=== PATIENT | male | born 1955 | race Two or more races ===

== ENCOUNTER 2021-05-03 20:49 | Inpatient (IN) | payer OTHER ==
[~2021-05-03] VITALS: Ht 190.5 cm; Wt 85.0 kg
[2021-05-03] MEDS ORDERED: DexAMETHasone SOD PHOS 10MG/1ML VIAL INJ IV ONE (21:15)
[2021-05-03 22:18] LABS: Basophils # (auto) 0 10 ^3/uL (0-0.2); Basophils % (auto) 0.4 % (0.0-2.0); Eosinophils # (auto) 0 10 ^3/uL (0-0.8); Hematocrit 39.5 % (41.0-53.0); Hemoglobin 14.2 g/dL (13.5-17.5); Lymphocytes # (auto) 0.4 10 ^3/uL (0.4-5.4); Lymphocytes % (auto) 5.5 % (10.0-50.0); Mean Corpuscular Hemoglobin 29.5 pg (28.0-32.0); Mean Corpuscular Volume 81.8 fL (80.0-100.0); Monocytes # (auto) 0.5 10 ^3/uL (0-1.3); Monocytes % (auto) 6.7 % (0.0-12.0); Neutrophils # (auto) 6.7 10 ^3/uL (1.6-8.6); Neutrophils % (auto) 87.4 % (37.0-80.0); Nucleated Red Blood Cells % 0.1 %; Red Blood Cells 4.83 10^6/uL (4.5-5.90); Red Cell Distribution Width 12.4 % (11.8-14.3); White Blood Cell 7.6 10^3/uL (4.4-10.8)
[2021-05-03 22:35] LABS: INR 1.12 (0.9-1.15); Partial Thromboplastin Time 31.3 sec (23.6-33.0)
[2021-05-03 22:38] LABS: Albumin 2.9 g/dL (3.4-5.0); Anion Gap 10 (5-15); BUN/Creatinine Ratio 27.6; Blood Alcohol < 3.0 mg/dL (0-5); Blood Urea Nitrogen 32 mg/dL (7-18); Calcium 8.5 mg/dL (8.5-10.1); Carbon Dioxide 25 mmol/L (21-32); Chloride 102 mmol/L (98-107); GFR African American 81 mL/min; GFR Non-African American 67 mL/min; Glucose 237 mg/dL (74-106); Magnesium 2.5 mg/dL (1.6-2.6); Potassium 4.4 mmol/L (3.5-5.1); Sodium 137 mmol/L (136-145)
[2021-05-03 22:40] LABS: Lactic Acid w/Reflex 2.4 mmol/L (0.4-2.0)
[2021-05-03 22:41] LABS: Alanine Aminotransferase 39 U/L (16-61); Alkaline Phosphatase 66 U/L (45-117); Aspartate Aminotransferase 50 U/L (15-37); Bilirubin, Total 0.7 mg/dL (0.2-1.0); Total Protein 7.5 g/dL (6.4-8.2)
[2021-05-04] VITALS (7 sets, daily range): BP systolic 95–107; BP diastolic 63–67
[2021-05-04] MEDS ORDERED: DEXTROSE (50%) 50ML SYRG IV PRN (01:15)
[2021-05-04] MEDS ORDERED: cefTRIAXone 1GM/50ML D5W 50 ML IV ONE (01:15)
[2021-05-04] MEDS ORDERED: PANTOPRAZOLE 40 MG TAB PO ONE (01:15)
[2021-05-04] MEDS ORDERED: ASCORBIC ACID 500 MG TAB PO ONE (01:15)
[2021-05-04] MEDS ORDERED: D5W/SOD CHL 0.45% 1,000 ML IV ONE (01:15)
[2021-05-04] MEDS ORDERED: IOHEXOL 350 MG/ML 100ML IJ ONE (01:18)
[2021-05-04] MEDS ORDERED: AZITHROMYCIN 500MG/ 250ML 250 ML IV ONE (01:30)
[2021-05-04] MEDS ORDERED: methylPREDNISolone SOD SUCC 125 MG/2 ML VL IV ONE (06:00)
[2021-05-04] MEDS ORDERED: OXYBUTYNIN CHL 5 MG TAB PO ONE (06:00)
[2021-05-04] MEDS ORDERED: glipiZIDE 5 MG TAB PO ONE (08:00)
[2021-05-04] MEDS: cefTRIAXone 1GM/50ML D5W 50 ML IV SCH ×2 (09:00→11:17)
[2021-05-04] MEDS ORDERED: METOPROLOL TARTRATE 50 MG TAB PO ONE (10:00)
[2021-05-04] MEDS: InsuLIN REG 1unit/0.01ml Soln (100units/ml) SC SCH ×3 (10:00→22:32)
[2021-05-04] MEDS ORDERED: ASPirin 81 mg TAB PO ONE (10:00)
[2021-05-04] MEDS: ACCU-CHEK COMFORT CURVE STRIP VI SCH ×2 (10:00→22:24)
[2021-05-04] MEDS ORDERED: AMITRIPTYLINE HCL 25 MG TAB PO ONE (10:00)
[2021-05-04] MEDS ORDERED: methylPREDNISolone SOD SUCC 125 MG/2 ML VL ONE (15:39)
[2021-05-04] MEDS ORDERED: LISINOPRIL 10 MG TAB PO ONE (22:00)
[2021-05-05 05:00] VITALS: BP 92/57
[2021-05-05 09:00] VITALS: BP 106/67
[2021-05-05] MEDS: ENOXAPARIN SOD 40 MG/0.4 ML SYRINGE SC SCH (10:30)
[2021-05-05] MEDS: ACCU-CHEK COMFORT CURVE STRIP VI SCH ×3 (10:30→21:49)
[2021-05-05] MEDS ORDERED: REMDESIVIR PER PHARMACY 0 ML IV SCH (12:15)
[2021-05-05 12:56] VITALS: BP 108/72
[2021-05-05 13:00] LABS: Urine WBC None Seen /hpf (0 - 3)
[2021-05-05 13:13] LABS: Urine Bacteria NONE SEEN /hpf (None Seen); Urine Blood TRACE /uL (Negative); Urine Hyaline Cast FEW /lpf (0 - 2); Urine Mucus FEW (None Seen); Urine Specific Gravity 1.039 (1.001-1.035)
[2021-05-05 13:21] LABS: Alcohol, Urine < 3.0 mg/dL (0-10); Amphetamine Screen, Urine NEGATIVE (NEGATIVE); Barbiturate Scree,Urine NEGATIVE (NEGATIVE); Benzodiazephine Screen, Urine NEGATIVE (NEGATIVE); Cannabinoid Screen, Urine NEGATIVE (NEGATIVE); Cocaine Screen, Urine NEGATIVE (NEGATIVE); Opiate Scree,Urine NEGATIVE (NEGATIVE); Phencyclidine Screen, Urine NEGATIVE (NEGATIVE)
[2021-05-05 13:36] LABS: Basophils # (auto) 0 10 ^3/uL (0-0.2); Basophils % (auto) 0.1 % (0.0-2.0); Eosinophils # (auto) 0 10 ^3/uL (0-0.8); Hematocrit 39.9 % (41.0-53.0); Hemoglobin 14.3 g/dL (13.5-17.5); Lymphocytes # (auto) 0.4 10 ^3/uL (0.4-5.4); Lymphocytes % (auto) 3.3 % (10.0-50.0); Mean Corpuscular Hemoglobin 29.2 pg (28.0-32.0); Mean Corpuscular Hgb Conc. 35.8 g/dL (32.0-36.0); Mean Corpuscular Volume 81.7 fL (80.0-100.0); Monocytes # (auto) 0.6 10 ^3/uL (0-1.3); Monocytes % (auto) 5.5 % (0.0-12.0); Neutrophils # (auto) 10.7 10 ^3/uL (1.6-8.6); Neutrophils % (auto) 91.1 % (37.0-80.0); Red Blood Cells 4.89 10^6/uL (4.5-5.90); White Blood Cell 11.8 10^3/uL (4.4-10.8)
[2021-05-05 13:47] LABS: Albumin 2.8 g/dL (3.4-5.0); BUN/Creatinine Ratio 46.5; Calcium 8.2 mg/dL (8.5-10.1)
[2021-05-05 13:49] LABS: Bilirubin, Total 0.6 mg/dL (0.2-1.0); Total Protein 7.2 g/dL (6.4-8.2)
[2021-05-05] MEDS ORDERED: SENNA 8.6 MG TAB PO SCH (14:00)
[2021-05-05] MEDS ORDERED: REMDESIVIR 200 MG in NS 210ml LOADING DOSE ADULT IV ONE (15:00)
[2021-05-05] MEDS ORDERED: SENNA 8.6 MG TAB PO PRN (16:15)
[2021-05-05 17:00] VITALS: BP 117/78
[2021-05-05] MEDS: InsuLIN REG 1unit/0.01ml Soln (100units/ml) SC SCH ×2 (17:06→21:51)
[2021-05-05 22:00] VITALS: BP 114/72
[2021-05-06 05:00] VITALS: BP 118/71
[2021-05-06] MEDS: ACCU-CHEK COMFORT CURVE STRIP VI SCH ×4 (06:08→21:43)
[2021-05-06] MEDS: InsuLIN REG 1unit/0.01ml Soln (100units/ml) SC SCH ×4 (06:09→21:55)
[2021-05-06 07:19] LABS: Albumin 2.6 g/dL (3.4-5.0); Calcium 8.6 mg/dL (8.5-10.1); Potassium 4.6 mmol/L (3.5-5.1)
[2021-05-06 07:22] LABS: Bilirubin, Total 0.9 mg/dL (0.2-1.0); Total Protein 6.8 g/dL (6.4-8.2)
[2021-05-06 07:26] LABS: Basophils # (auto) 0 10 ^3/uL (0-0.2); Basophils % (auto) 0.1 % (0.0-2.0); Eosinophils # (auto) 0 10 ^3/uL (0-0.8); Hematocrit 41.4 % (41.0-53.0); Hemoglobin 14.7 g/dL (13.5-17.5); Lymphocytes # (auto) 0.7 10 ^3/uL (0.4-5.4); Mean Corpuscular Hemoglobin 29.2 pg (28.0-32.0); Mean Corpuscular Hgb Conc. 35.4 g/dL (32.0-36.0); Mean Corpuscular Volume 82.4 fL (80.0-100.0); Monocytes # (auto) 0.6 10 ^3/uL (0-1.3); Monocytes % (auto) 6.2 % (0.0-12.0); Neutrophils # (auto) 8.7 10 ^3/uL (1.6-8.6); Neutrophils % (auto) 86.7 % (37.0-80.0); Nucleated Red Blood Cells % 0.2 %; Red Blood Cells 5.03 10^6/uL (4.5-5.90); Red Cell Distribution Width 12.5 % (11.8-14.3)
[2021-05-06] MEDS: cefTRIAXone 1GM/50ML D5W 50 ML IV SCH (08:31)
[2021-05-06] MEDS: ASCORBIC ACID 1,000 MG TAB PO SCH (08:32)
[2021-05-06] MEDS: DexAMETHasone SOD PHOS 10MG/1ML VIAL INJ IV SCH (08:32)
[2021-05-06] MEDS: ZINC SULFATE 220mg CAP or TAB PO SCH (08:32)
[2021-05-06] MEDS: ENOXAPARIN SOD 40 MG/0.4 ML SYRINGE SC SCH (08:32)
[2021-05-06] MEDS: CHOLECALCIFEROL (VITD3) 2,000 UNIT CAP/TAB PO SCH (08:32)
[2021-05-06 09:00] VITALS: BP 108/73
[2021-05-06 12:57] VITALS: BP 122/82
[2021-05-06] MEDS: REMDESIVIR 100mg 100 MG in SODIUM CHL 0.9% 230 ML IV SCH (16:44)
[2021-05-06 17:00] VITALS: BP 115/78
[2021-05-06] MEDS ORDERED: LORazepam 0.5 MG TAB PO PRN (17:30)
[2021-05-06 20:00] VITALS: BP 131/85
[2021-05-06 22:00] VITALS: BP 131/85
[2021-05-07 05:00] VITALS: BP 135/84
[2021-05-07] MEDS: ACCU-CHEK COMFORT CURVE STRIP VI SCH ×4 (06:39→21:17)
[2021-05-07] MEDS: InsuLIN REG 1unit/0.01ml Soln (100units/ml) SC SCH ×4 (06:57→21:40)
[2021-05-07 08:11] LABS: Potassium 4.1 mmol/L (3.5-5.1)
[2021-05-07 08:18] LABS: Albumin 2.8 g/dL (3.4-5.0); Bilirubin, Total 0.9 mg/dL (0.2-1.0); Calcium 8.5 mg/dL (8.5-10.1); Total Protein 6.8 g/dL (6.4-8.2)
[2021-05-07 09:00] VITALS: BP 130/90
[2021-05-07] MEDS: ZINC SULFATE 220mg CAP or TAB PO SCH (09:39)
[2021-05-07] MEDS: CHOLECALCIFEROL (VITD3) 2,000 UNIT CAP/TAB PO SCH (09:39)
[2021-05-07] MEDS: ENOXAPARIN SOD 40 MG/0.4 ML SYRINGE SC SCH (09:39)
[2021-05-07] MEDS: ASCORBIC ACID 1,000 MG TAB PO SCH (09:39)
[2021-05-07] MEDS: DexAMETHasone SOD PHOS 10MG/1ML VIAL INJ IV SCH (09:39)
[2021-05-07] MEDS: cefTRIAXone 1GM/50ML D5W 50 ML IV SCH (09:39)
[2021-05-07 13:00] VITALS: BP 116/59
[2021-05-07] MEDS: REMDESIVIR 100mg 100 MG in SODIUM CHL 0.9% 230 ML IV SCH (15:13)
[2021-05-07 17:00] VITALS: BP 129/80
[2021-05-07] MEDS ORDERED: POTASSIUM CHLORIDE 20 MEQ in D5W 5% 1,000 ML IV SCH (17:00)
[2021-05-07] MEDS: LORazepam 2MG/ML-1ML VIAL IV PRN ×2 (17:48→22:30)
[2021-05-07 21:21] VITALS: BP 137/80
[2021-05-08 05:00] VITALS: BP 120/69
[2021-05-08] MEDS: LORazepam 2MG/ML-1ML VIAL IV PRN ×2 (06:08→11:52)
[2021-05-08] MEDS: ACCU-CHEK COMFORT CURVE STRIP VI SCH ×4 (06:09→21:46)
[2021-05-08] MEDS: InsuLIN REG 1unit/0.01ml Soln (100units/ml) SC SCH ×4 (06:10→21:49)
[2021-05-08 07:11] LABS: Albumin 2.7 g/dL (3.4-5.0); Calcium 8.5 mg/dL (8.5-10.1); Potassium 4.2 mmol/L (3.5-5.1)
[2021-05-08 07:15] LABS: BUN/Creatinine Ratio 37.5; Total Protein 6.7 g/dL (6.4-8.2)
[2021-05-08 09:00] VITALS: BP 113/74
[2021-05-08] MEDS: cefTRIAXone 1GM/50ML D5W 50 ML IV SCH (09:00)
[2021-05-08] MEDS: DexAMETHasone SOD PHOS 10MG/1ML VIAL INJ IV SCH (10:00)
[2021-05-08] MEDS: ASCORBIC ACID 1,000 MG TAB PO SCH (10:00)
[2021-05-08] MEDS: ZINC SULFATE 220mg CAP or TAB PO SCH (10:00)
[2021-05-08] MEDS: CHOLECALCIFEROL (VITD3) 2,000 UNIT CAP/TAB PO SCH (10:00)
[2021-05-08] MEDS: ENOXAPARIN SOD 40 MG/0.4 ML SYRINGE SC SCH (10:00)
[2021-05-08] MEDS: REMDESIVIR 100mg 100 MG in SODIUM CHL 0.9% 230 ML IV SCH (15:00)
[2021-05-08 17:00] VITALS: BP 121/70
[2021-05-08 22:00] VITALS: BP 121/72
[2021-05-09] VITALS (31 sets, daily range): BP systolic 89–166; BP diastolic 59–109
[2021-05-09] MEDS: LORazepam 2MG/ML-1ML VIAL IV PRN ×3 (02:50→13:38)
[2021-05-09] MEDS: ACCU-CHEK COMFORT CURVE STRIP VI SCH ×4 (06:40→22:17)
[2021-05-09] MEDS: InsuLIN REG 1unit/0.01ml Soln (100units/ml) SC SCH ×4 (06:41→22:18)
[2021-05-09 07:36] LABS: Albumin 2.6 g/dL (3.4-5.0); Calcium 8.5 mg/dL (8.5-10.1); Potassium 4.9 mmol/L (3.5-5.1)
[2021-05-09 07:40] LABS: Bilirubin, Total 1.1 mg/dL (0.2-1.0); Total Protein 7.1 g/dL (6.4-8.2)
[2021-05-09] MEDS: cefTRIAXone 1GM/50ML D5W 50 ML IV SCH (09:33)
[2021-05-09] MEDS: ZINC SULFATE 220mg CAP or TAB PO SCH ×2 (09:34→10:00)
[2021-05-09] MEDS: ENOXAPARIN SOD 40 MG/0.4 ML SYRINGE SC SCH (09:34)
[2021-05-09] MEDS: DexAMETHasone SOD PHOS 10MG/1ML VIAL INJ IV SCH (09:34)
[2021-05-09] MEDS: ASCORBIC ACID 1,000 MG TAB PO SCH ×2 (09:34→10:00)
[2021-05-09] MEDS: CHOLECALCIFEROL (VITD3) 2,000 UNIT CAP/TAB PO SCH ×2 (09:34→10:00)
[2021-05-09] MEDS ORDERED: LORazepam 2MG/ML-1ML VIAL IV ONE (10:00)
[2021-05-09] MEDS ORDERED: MORPHINE SULFATE 4 MG/ML SYR/VIAL IV PRN (12:15)
[2021-05-09] MEDS ORDERED: PROPOFOL 100 ML IV ONE (12:23)
[2021-05-09] MEDS ORDERED: NOREPINEPHRINE 8 MG/250ML KIT 250 ML IV ONE (12:23)
[2021-05-09] MEDS: PROPOFOL 100 ML IV SCH (13:20)
[2021-05-09] MEDS: fentaNYL Drip 2500mCg/250mlNS 250 ML IV SCH (13:20)
[2021-05-09] MEDS: MIDAZOLAM DRIP 50 mg/50mL 50 ML IV SCH ×4 (13:20→21:05)
[2021-05-09] MEDS: REMDESIVIR 100mg 100 MG in SODIUM CHL 0.9% 230 ML IV SCH (15:18)
[2021-05-09] MEDS: IPRATROPIUM BROM 0.5 MG/2.5ML INH SOL NEB SCH ×2 (18:18→22:00)
[2021-05-10] VITALS (88 sets, daily range): BP systolic 89–115; BP diastolic 61–77
[2021-05-10] MEDS: fentaNYL Drip 2500mCg/250mlNS 250 ML IV SCH ×2 (00:19→12:45)
[2021-05-10] MEDS: IPRATROPIUM BROM 0.5 MG/2.5ML INH SOL NEB SCH ×6 (02:00→23:11)
[2021-05-10] MEDS: MIDAZOLAM DRIP 50 mg/50mL 50 ML IV SCH ×6 (02:10→22:15)
[2021-05-10 05:21] LABS: Albumin 2.3 g/dL (3.4-5.0); Calcium 8.5 mg/dL (8.5-10.1); Potassium 4.7 mmol/L (3.5-5.1)
[2021-05-10 05:31] LABS: Bilirubin, Total 0.5 mg/dL (0.2-1.0); Total Protein 6.1 g/dL (6.4-8.2)
[2021-05-10] MEDS: PROPOFOL 100 ML IV SCH (05:40)
[2021-05-10] MEDS: InsuLIN REG 1unit/0.01ml Soln (100units/ml) SC SCH ×4 (06:44→22:25)
[2021-05-10] MEDS: ACCU-CHEK COMFORT CURVE STRIP VI SCH ×4 (06:45→22:00)
[2021-05-10] MEDS: cefTRIAXone 1GM/50ML D5W 50 ML IV SCH (09:00)
[2021-05-10] MEDS: DexAMETHasone SOD PHOS 10MG/1ML VIAL INJ IV SCH (09:55)
[2021-05-10] MEDS: ASCORBIC ACID 1,000 MG TAB PO SCH (09:56)
[2021-05-10] MEDS: ENOXAPARIN SOD 40 MG/0.4 ML SYRINGE SC SCH (09:56)
[2021-05-10] MEDS: CHOLECALCIFEROL (VITD3) 2,000 UNIT CAP/TAB PO SCH (09:56)
[2021-05-10] MEDS: ZINC SULFATE 220mg CAP or TAB PO SCH (09:56)
[2021-05-10 13:28] LABS: CSF White Blood Cells 0 CUMM (0-5)
[2021-05-10 13:29] LABS: Protein, CSF 76.6 mg/dL (15-45)
[2021-05-10] MEDS: NOREPINEPHRINE 8 MG/250ML KIT 250 ML IV SCH (15:13)
[2021-05-10 19:11] LABS: Basophils # (auto) 0 10 ^3/uL (0-0.2); Basophils % (auto) 0.4 % (0.0-2.0); Eosinophils # (auto) 0 10 ^3/uL (0-0.8); Eosinophils % (auto) 0.1 % (0.0-7.0); Hematocrit 39.7 % (41.0-53.0); Hemoglobin 13.9 g/dL (13.5-17.5); Lymphocytes # (auto) 0.2 10 ^3/uL (0.4-5.4); Lymphocytes % (auto) 2.1 % (10.0-50.0); Mean Corpuscular Hemoglobin 29.8 pg (28.0-32.0); Mean Corpuscular Hgb Conc. 34.9 g/dL (32.0-36.0); Mean Corpuscular Volume 85.4 fL (80.0-100.0); Monocytes # (auto) 0.3 10 ^3/uL (0-1.3); Monocytes % (auto) 2.7 % (0.0-12.0); Neutrophils # (auto) 9.6 10 ^3/uL (1.6-8.6); Neutrophils % (auto) 94.7 % (37.0-80.0); Nucleated Red Blood Cells % 0.2 %; Red Blood Cells 4.65 10^6/uL (4.5-5.90); Red Cell Distribution Width 13.1 % (11.8-14.3); White Blood Cell 10.2 10^3/uL (4.4-10.8)
[2021-05-10] MEDS: ACETAMINOPHEN 325 MG TAB PO PRN (23:21)
[2021-05-11] VITALS (103 sets, daily range): BP systolic 100–123; BP diastolic 67–86
[2021-05-11] MEDS: MIDAZOLAM DRIP 50 mg/50mL 50 ML IV SCH ×3 (02:00→10:54)
[2021-05-11] MEDS: IPRATROPIUM BROM 0.5 MG/2.5ML INH SOL NEB SCH ×6 (03:18→22:40)
[2021-05-11] MEDS: ACETAMINOPHEN 325 MG TAB PO PRN (06:20)
[2021-05-11] MEDS: InsuLIN REG 1unit/0.01ml Soln (100units/ml) SC SCH ×4 (06:35→21:54)
[2021-05-11] MEDS: ACCU-CHEK COMFORT CURVE STRIP VI SCH ×4 (06:36→21:53)
[2021-05-11] MEDS: cefTRIAXone 1GM/50ML D5W 50 ML IV SCH (09:00)
[2021-05-11] MEDS: ENOXAPARIN SOD 40 MG/0.4 ML SYRINGE SC SCH (10:00)
[2021-05-11] MEDS: ZINC SULFATE 220mg CAP or TAB PO SCH (10:00)
[2021-05-11] MEDS: CHOLECALCIFEROL (VITD3) 2,000 UNIT CAP/TAB PO SCH (10:00)
[2021-05-11] MEDS: DexAMETHasone SOD PHOS 10MG/1ML VIAL INJ IV SCH (10:00)
[2021-05-11] MEDS: ASCORBIC ACID 1,000 MG TAB PO SCH (10:00)
[2021-05-11] MEDS: PROPOFOL 100 ML IV SCH (12:15)
[2021-05-11] MEDS ORDERED: MORPHINE SULFATE INJECTION 2 MG/ML SYRG IV PRN (13:45)
[2021-05-11] MEDS: NOREPINEPHRINE 8 MG/250ML KIT 250 ML IV SCH (14:45)
[2021-05-12] VITALS (101 sets, daily range): BP systolic 90–111; BP diastolic 61–78
[2021-05-12] MEDS: ACETAMINOPHEN 325 MG TAB PO PRN (02:32)
[2021-05-12] MEDS: IPRATROPIUM BROM 0.5 MG/2.5ML INH SOL NEB SCH ×5 (02:52→22:00)
[2021-05-12] MEDS: fentaNYL Drip 2500mCg/250mlNS 250 ML IV SCH (03:05)
[2021-05-12] MEDS: MIDAZOLAM DRIP 50 mg/50mL 50 ML IV SCH ×2 (03:05→06:52)
[2021-05-12 05:37] LABS: Basophils # (auto) 0 10 ^3/uL (0-0.2); Basophils % (auto) 0.1 % (0.0-2.0); Eosinophils # (auto) 0.1 10 ^3/uL (0-0.8); Eosinophils % (auto) 0.4 % (0.0-7.0); Hematocrit 44.7 % (41.0-53.0); Hemoglobin 14.4 g/dL (13.5-17.5); Lymphocytes # (auto) 0.7 10 ^3/uL (0.4-5.4); Lymphocytes % (auto) 4.9 % (10.0-50.0); Mean Corpuscular Hgb Conc. 32.2 g/dL (32.0-36.0); Mean Corpuscular Volume 89.8 fL (80.0-100.0); Monocytes # (auto) 0.7 10 ^3/uL (0-1.3); Monocytes % (auto) 4.8 % (0.0-12.0); Neutrophils # (auto) 13.1 10 ^3/uL (1.6-8.6); Neutrophils % (auto) 89.8 % (37.0-80.0); Nucleated Red Blood Cells % 0.1 %; Red Blood Cells 4.98 10^6/uL (4.5-5.90); Red Cell Distribution Width 13.4 % (11.8-14.3); White Blood Cell 14.6 10^3/uL (4.4-10.8)
[2021-05-12 05:59] LABS: Albumin 2.1 g/dL (3.4-5.0); Blood Urea Nitrogen 44 mg/dL (7-18); Calcium 8.4 mg/dL (8.5-10.1); Carbon Dioxide 30 mmol/L (21-32); Chloride 124 mmol/L (98-107); Glucose 236 mg/dL (74-106); Potassium 5.3 mmol/L (3.5-5.1); Sodium 153 mmol/L (136-145)
[2021-05-12 06:03] LABS: Alanine Aminotransferase 30 U/L (16-61); Alkaline Phosphatase 84 U/L (45-117); Aspartate Aminotransferase 18 U/L (15-37); BUN/Creatinine Ratio 52.4; Bilirubin, Total 0.4 mg/dL (0.2-1.0); GFR African American 118 mL/min; GFR Non-African American 97 mL/min; Total Protein 6.2 g/dL (6.4-8.2)
[2021-05-12] MEDS: ACCU-CHEK COMFORT CURVE STRIP VI SCH ×4 (06:53→23:35)
[2021-05-12] MEDS: InsuLIN REG 1unit/0.01ml Soln (100units/ml) SC SCH ×4 (06:54→23:36)
[2021-05-12] MEDS: cefTRIAXone 1GM/50ML D5W 50 ML IV SCH (09:00)
[2021-05-12] MEDS ORDERED: FUROSEMIDE 20 MG/2 ML VIAL IV ONE (09:30)
[2021-05-12] MEDS: DexAMETHasone SOD PHOS 10MG/1ML VIAL INJ IV SCH (10:00)
[2021-05-12] MEDS: CHOLECALCIFEROL (VITD3) 2,000 UNIT CAP/TAB PO SCH (10:00)
[2021-05-12] MEDS: ZINC SULFATE 220mg CAP or TAB PO SCH (10:00)
[2021-05-12] MEDS: ASCORBIC ACID 1,000 MG TAB PO SCH (10:00)
[2021-05-12] MEDS: ENOXAPARIN SOD 40 MG/0.4 ML SYRINGE SC SCH (10:00)
[2021-05-12] MEDS: FUROSEMIDE 40 MG/4 ML VIAL IV SCH (10:00)
[2021-05-12] MEDS: PROPOFOL 100 ML IV SCH (12:15)
[2021-05-12] MEDS: NOREPINEPHRINE 8 MG/250ML KIT 250 ML IV SCH (14:45)
[2021-05-13] VITALS (100 sets, daily range): BP systolic 88–109; BP diastolic 60–74
[2021-05-13] MEDS: IPRATROPIUM BROM 0.5 MG/2.5ML INH SOL NEB SCH ×6 (02:28→22:00)
[2021-05-13] MEDS: ACCU-CHEK COMFORT CURVE STRIP VI SCH ×3 (08:04→17:32)
[2021-05-13] MEDS: InsuLIN REG 1unit/0.01ml Soln (100units/ml) SC SCH ×3 (08:05→17:35)
[2021-05-13] MEDS: cefTRIAXone 1GM/50ML D5W 50 ML IV SCH (10:14)
[2021-05-13] MEDS: FUROSEMIDE 40 MG/4 ML VIAL IV SCH (10:15)
[2021-05-13] MEDS: DexAMETHasone SOD PHOS 10MG/1ML VIAL INJ IV SCH (10:15)
[2021-05-13] MEDS: ZINC SULFATE 220mg CAP or TAB PO SCH (10:16)
[2021-05-13] MEDS: ASCORBIC ACID 1,000 MG TAB PO SCH (10:16)
[2021-05-13] MEDS: CHOLECALCIFEROL (VITD3) 2,000 UNIT CAP/TAB PO SCH (10:17)
[2021-05-13] MEDS: ENOXAPARIN SOD 40 MG/0.4 ML SYRINGE SC SCH (10:18)
[2021-05-13] MEDS: MIDAZOLAM DRIP 50 mg/50mL 50 ML IV SCH ×3 (10:19→18:11)
[2021-05-13] MEDS: fentaNYL Drip 2500mCg/250mlNS 250 ML IV SCH (10:22)
[2021-05-13] MEDS: NOREPINEPHRINE 8 MG/250ML KIT 250 ML IV SCH (14:45)
[2021-05-13] MEDS: PROPOFOL 100 ML IV SCH ×2 (14:50→22:56)
[2021-05-14] VITALS (101 sets, daily range): BP systolic 95–110; BP diastolic 64–75
[2021-05-14] MEDS: QUEtiapine FUMARATE 25 MG TAB PO SCH ×3 (01:20→23:50)
[2021-05-14] MEDS: ACCU-CHEK COMFORT CURVE STRIP VI SCH ×4 (01:20→17:35)
[2021-05-14] MEDS: InsuLIN REG 1unit/0.01ml Soln (100units/ml) SC SCH ×5 (01:21→17:34)
[2021-05-14] MEDS: IPRATROPIUM BROM 0.5 MG/2.5ML INH SOL NEB SCH ×6 (02:00→22:00)
[2021-05-14] MEDS: cefTRIAXone 1GM/50ML D5W 50 ML IV SCH (10:09)
[2021-05-14] MEDS: DexAMETHasone SOD PHOS 10MG/1ML VIAL INJ IV SCH (10:10)
[2021-05-14] MEDS: ZINC SULFATE 220mg CAP or TAB PO SCH (10:11)
[2021-05-14] MEDS: ASCORBIC ACID 1,000 MG TAB PO SCH (10:11)
[2021-05-14] MEDS: FUROSEMIDE 40 MG/4 ML VIAL IV SCH (10:11)
[2021-05-14] MEDS: ENOXAPARIN SOD 40 MG/0.4 ML SYRINGE SC SCH (10:12)
[2021-05-14] MEDS: CHOLECALCIFEROL (VITD3) 2,000 UNIT CAP/TAB PO SCH (10:12)
[2021-05-14] MEDS: fentaNYL Drip 2500mCg/250mlNS 250 ML IV SCH (12:15)
[2021-05-14] MEDS: MIDAZOLAM DRIP 50 mg/50mL 50 ML IV SCH (14:31)
[2021-05-14] MEDS: NOREPINEPHRINE 8 MG/250ML KIT 250 ML IV SCH (14:31)
[2021-05-15] VITALS (88 sets, daily range): BP systolic 85–110; BP diastolic 59–75
[2021-05-15] MEDS: IPRATROPIUM BROM 0.5 MG/2.5ML INH SOL NEB SCH ×6 (02:00→22:48)
[2021-05-15] MEDS: ACETAMINOPHEN 325 MG TAB PO PRN ×2 (02:59→19:26)
[2021-05-15] MEDS: ACCU-CHEK COMFORT CURVE STRIP VI SCH ×5 (05:14→23:44)
[2021-05-15 06:53] LABS: Basophils # (auto) 0 10 ^3/uL (0-0.2); Basophils % (auto) 0.3 % (0.0-2.0); Eosinophils # (auto) 0.1 10 ^3/uL (0-0.8); Eosinophils % (auto) 0.9 % (0.0-7.0); Hematocrit 40.3 % (41.0-53.0); Hemoglobin 13.8 g/dL (13.5-17.5); Lymphocytes # (auto) 0.4 10 ^3/uL (0.4-5.4); Lymphocytes % (auto) 2.8 % (10.0-50.0); Mean Corpuscular Hemoglobin 29.9 pg (28.0-32.0); Mean Corpuscular Hgb Conc. 34.3 g/dL (32.0-36.0); Mean Corpuscular Volume 87.3 fL (80.0-100.0); Monocytes # (auto) 0.6 10 ^3/uL (0-1.3); Monocytes % (auto) 4.1 % (0.0-12.0); Neutrophils # (auto) 12.5 10 ^3/uL (1.6-8.6); Neutrophils % (auto) 91.9 % (37.0-80.0); Nucleated Red Blood Cells % 0.3 %; Red Blood Cells 4.62 10^6/uL (4.5-5.90); Red Cell Distribution Width 13.1 % (11.8-14.3); White Blood Cell 13.6 10^3/uL (4.4-10.8)
[2021-05-15 07:14] LABS: Potassium 4.8 mmol/L (3.5-5.1)
[2021-05-15 07:18] LABS: BUN/Creatinine Ratio 82.9; Calcium 8.8 mg/dL (8.5-10.1)
[2021-05-15] MEDS: InsuLIN REG 1unit/0.01ml Soln (100units/ml) SC SCH ×4 (07:26→23:37)
[2021-05-15 07:32] LABS: Bilirubin, Total 0.7 mg/dL (0.2-1.0)
[2021-05-15] MEDS: cefTRIAXone 1GM/50ML D5W 50 ML IV SCH (09:00)
[2021-05-15] MEDS: QUEtiapine FUMARATE 25 MG TAB PO SCH ×2 (10:00→22:00)
[2021-05-15] MEDS: FUROSEMIDE 40 MG/4 ML VIAL IV SCH (10:00)
[2021-05-15] MEDS: ZINC SULFATE 220mg CAP or TAB PO SCH (10:00)
[2021-05-15] MEDS: ASCORBIC ACID 1,000 MG TAB PO SCH (10:00)
[2021-05-15] MEDS: ENOXAPARIN SOD 40 MG/0.4 ML SYRINGE SC SCH (10:00)
[2021-05-15] MEDS: DexAMETHasone SOD PHOS 10MG/1ML VIAL INJ IV SCH (10:00)
[2021-05-15] MEDS: CHOLECALCIFEROL (VITD3) 2,000 UNIT CAP/TAB PO SCH (10:00)
[2021-05-15] MEDS: PROPOFOL 100 ML IV SCH (12:15)
[2021-05-15] MEDS: fentaNYL Drip 2500mCg/250mlNS 250 ML IV SCH (12:15)
[2021-05-15] MEDS: NOREPINEPHRINE 8 MG/250ML KIT 250 ML IV SCH (14:45)
[2021-05-15] MEDS: SOD CHL 0.45% 1,000 ML IV SCH (17:00)
[2021-05-15] MEDS: INSULIN LANTUS (GLARGINE) 1 /0.01ml (100units/ml) SC SCH (23:00)
[2021-05-16] VITALS (98 sets, daily range): BP systolic 99–140; BP diastolic 59–92
[2021-05-16] MEDS: IPRATROPIUM BROM 0.5 MG/2.5ML INH SOL NEB SCH ×6 (02:31→22:21)
[2021-05-16] MEDS: ACCU-CHEK COMFORT CURVE STRIP VI SCH ×3 (06:00→17:56)
[2021-05-16] MEDS: InsuLIN REG 1unit/0.01ml Soln (100units/ml) SC SCH ×3 (06:30→17:56)
[2021-05-16 06:59] LABS: Basophils # (auto) 0 10 ^3/uL (0-0.2); Basophils % (auto) 0.2 % (0.0-2.0); Eosinophils # (auto) 0.1 10 ^3/uL (0-0.8); Eosinophils % (auto) 0.7 % (0.0-7.0); Hematocrit 40.2 % (41.0-53.0); Hemoglobin 13.6 g/dL (13.5-17.5); Lymphocytes # (auto) 0.4 10 ^3/uL (0.4-5.4); Lymphocytes % (auto) 3.1 % (10.0-50.0); Mean Corpuscular Hemoglobin 29.7 pg (28.0-32.0); Mean Corpuscular Volume 87.5 fL (80.0-100.0); Monocytes # (auto) 0.5 10 ^3/uL (0-1.3); Monocytes % (auto) 3.3 % (0.0-12.0); Neutrophils # (auto) 12.8 10 ^3/uL (1.6-8.6); Neutrophils % (auto) 92.7 % (37.0-80.0); Nucleated Red Blood Cells % 0.2 %; Red Blood Cells 4.59 10^6/uL (4.5-5.90); Red Cell Distribution Width 13.3 % (11.8-14.3); White Blood Cell 13.8 10^3/uL (4.4-10.8)
[2021-05-16 07:40] LABS: Potassium 4.5 mmol/L (3.5-5.1)
[2021-05-16 08:14] LABS: Albumin 2.1 g/dL (3.4-5.0); BUN/Creatinine Ratio 89.4; Bilirubin, Total 0.9 mg/dL (0.2-1.0); Total Protein 6.2 g/dL (6.4-8.2)
[2021-05-16] MEDS: cefTRIAXone 1GM/50ML D5W 50 ML IV SCH (09:00)
[2021-05-16] MEDS: SOD CHL 0.45% 1,000 ML IV SCH ×2 (09:00→17:00)
[2021-05-16] MEDS: DexAMETHasone SOD PHOS 10MG/1ML VIAL INJ IV SCH (10:01)
[2021-05-16] MEDS: ENOXAPARIN SOD 40 MG/0.4 ML SYRINGE SC SCH (10:01)
[2021-05-16] MEDS: QUEtiapine FUMARATE 25 MG TAB PO SCH ×2 (10:01→21:23)
[2021-05-16] MEDS: CHOLECALCIFEROL (VITD3) 2,000 UNIT CAP/TAB PO SCH (10:01)
[2021-05-16] MEDS: ZINC SULFATE 220mg CAP or TAB PO SCH (10:01)
[2021-05-16] MEDS: FUROSEMIDE 40 MG/4 ML VIAL IV SCH (10:01)
[2021-05-16] MEDS: ASCORBIC ACID 1,000 MG TAB PO SCH (10:01)
[2021-05-16] MEDS: PROPOFOL 100 ML IV SCH (12:15)
[2021-05-16] MEDS: MIDAZOLAM DRIP 50 mg/50mL 50 ML IV SCH (12:15)
[2021-05-16] MEDS: fentaNYL Drip 2500mCg/250mlNS 250 ML IV SCH (12:15)
[2021-05-16] MEDS: NOREPINEPHRINE 8 MG/250ML KIT 250 ML IV SCH (14:45)
[2021-05-16] MEDS: INSULIN LANTUS (GLARGINE) 1 /0.01ml (100units/ml) SC SCH (21:21)
[2021-05-17] VITALS (100 sets, daily range): BP systolic 80–166; BP diastolic 48–103
[2021-05-17] MEDS: InsuLIN REG 1unit/0.01ml Soln (100units/ml) SC SCH ×5 (00:48→23:42)
[2021-05-17] MEDS: IPRATROPIUM BROM 0.5 MG/2.5ML INH SOL NEB SCH ×6 (02:33→21:58)
[2021-05-17] MEDS: ACCU-CHEK COMFORT CURVE STRIP VI SCH ×5 (06:23→23:40)
[2021-05-17] MEDS: SOD CHL 0.45% 1,000 ML IV SCH ×4 (07:00→18:35)
[2021-05-17] MEDS: FUROSEMIDE 40 MG/4 ML VIAL IV SCH (09:59)
[2021-05-17] MEDS: cefTRIAXone 1GM/50ML D5W 50 ML IV SCH (09:59)
[2021-05-17] MEDS: DexAMETHasone SOD PHOS 10MG/1ML VIAL INJ IV SCH (09:59)
[2021-05-17] MEDS: ENOXAPARIN SOD 40 MG/0.4 ML SYRINGE SC SCH (10:00)
[2021-05-17] MEDS: QUEtiapine FUMARATE 25 MG TAB PO SCH ×2 (10:00→22:15)
[2021-05-17] MEDS: ZINC SULFATE 220mg CAP or TAB PO SCH (10:00)
[2021-05-17] MEDS: CHOLECALCIFEROL (VITD3) 2,000 UNIT CAP/TAB PO SCH (10:00)
[2021-05-17] MEDS: ASCORBIC ACID 1,000 MG TAB PO SCH (10:00)
[2021-05-17] MEDS: fentaNYL Drip 2500mCg/250mlNS 250 ML IV SCH ×2 (12:15→17:04)
[2021-05-17] MEDS: MIDAZOLAM DRIP 50 mg/50mL 50 ML IV SCH (12:15)
[2021-05-17] MEDS: PROPOFOL 100 ML IV SCH ×2 (12:15→22:17)
[2021-05-17] MEDS: NOREPINEPHRINE 8 MG/250ML KIT 250 ML IV SCH (14:45)
[2021-05-17] MEDS: INSULIN LANTUS (GLARGINE) 1 /0.01ml (100units/ml) SC SCH (22:16)
[2021-05-18] VITALS (72 sets, daily range): BP systolic 79–153; BP diastolic 52–99
[2021-05-18] MEDS: IPRATROPIUM BROM 0.5 MG/2.5ML INH SOL NEB SCH ×6 (02:06→21:49)
[2021-05-18 05:45] LABS: Basophils # (auto) 0 10 ^3/uL (0-0.2); Basophils % (auto) 0.1 % (0.0-2.0); Eosinophils # (auto) 0.1 10 ^3/uL (0-0.8); Eosinophils % (auto) 0.5 % (0.0-7.0); Hematocrit 33.3 % (41.0-53.0); Hemoglobin 11.3 g/dL (13.5-17.5); Lymphocytes # (auto) 0.7 10 ^3/uL (0.4-5.4); Lymphocytes % (auto) 5.5 % (10.0-50.0); Mean Corpuscular Hemoglobin 29.5 pg (28.0-32.0); Mean Corpuscular Hgb Conc. 33.8 g/dL (32.0-36.0); Mean Corpuscular Volume 87.3 fL (80.0-100.0); Monocytes # (auto) 0.7 10 ^3/uL (0-1.3); Neutrophils # (auto) 11.9 10 ^3/uL (1.6-8.6); Neutrophils % (auto) 88.9 % (37.0-80.0); Nucleated Red Blood Cells % 0.1 %; Red Blood Cells 3.82 10^6/uL (4.5-5.90); White Blood Cell 13.4 10^3/uL (4.4-10.8)
[2021-05-18 05:57] LABS: Calcium 7.7 mg/dL (8.5-10.1); Chloride 113 mmol/L (98-107); Potassium 3.8 mmol/L (3.5-5.1); Sodium 146 mmol/L (136-145)
[2021-05-18 06:04] LABS: Alanine Aminotransferase 23 U/L (16-61); Albumin 1.8 g/dL (3.4-5.0); Alkaline Phosphatase 79 U/L (45-117); Aspartate Aminotransferase 18 U/L (15-37); Bilirubin, Total 0.9 mg/dL (0.2-1.0); Blood Urea Nitrogen 37 mg/dL (7-18); Carbon Dioxide 34 mmol/L (21-32); GFR African American 255 mL/min; GFR Non-African American 211 mL/min; Glucose 171 mg/dL (74-106); Total Protein 5.3 g/dL (6.4-8.2)
[2021-05-18] MEDS: SOD CHL 0.45% 1,000 ML IV SCH ×2 (09:00→17:00)
[2021-05-18] MEDS: cefTRIAXone 1GM/50ML D5W 50 ML IV SCH (09:15)
[2021-05-18] MEDS: FUROSEMIDE 40 MG/4 ML VIAL IV SCH (09:15)
[2021-05-18] MEDS: DexAMETHasone SOD PHOS 10MG/1ML VIAL INJ IV SCH (09:15)
[2021-05-18] MEDS: QUEtiapine FUMARATE 25 MG TAB PO SCH ×2 (09:15→21:25)
[2021-05-18] MEDS: ZINC SULFATE 220mg CAP or TAB PO SCH (09:15)
[2021-05-18] MEDS: ENOXAPARIN SOD 40 MG/0.4 ML SYRINGE SC SCH (09:16)
[2021-05-18] MEDS: ASCORBIC ACID 1,000 MG TAB PO SCH (09:16)
[2021-05-18] MEDS: CHOLECALCIFEROL (VITD3) 2,000 UNIT CAP/TAB PO SCH (09:16)
[2021-05-18] MEDS: ACCU-CHEK COMFORT CURVE STRIP VI SCH ×2 (10:58→17:05)
[2021-05-18] MEDS: InsuLIN REG 1unit/0.01ml Soln (100units/ml) SC SCH ×2 (10:59→17:05)
[2021-05-18] MEDS: MIDAZOLAM DRIP 50 mg/50mL 50 ML IV SCH (12:15)
[2021-05-18] MEDS: NOREPINEPHRINE 8 MG/250ML KIT 250 ML IV SCH (14:45)
[2021-05-18] MEDS: ACETAMINOPHEN 325 MG TAB PO PRN (20:50)
[2021-05-18] MEDS: INSULIN LANTUS (GLARGINE) 1 /0.01ml (100units/ml) SC SCH (21:25)
[2021-05-19] VITALS (101 sets, daily range): BP systolic 81–210; BP diastolic 53–128
[2021-05-19] MEDS: ACCU-CHEK COMFORT CURVE STRIP VI SCH ×4 (00:30→18:01)
[2021-05-19] MEDS: InsuLIN REG 1unit/0.01ml Soln (100units/ml) SC SCH ×4 (00:40→18:02)
[2021-05-19] MEDS: IPRATROPIUM BROM 0.5 MG/2.5ML INH SOL NEB SCH ×6 (01:05→22:50)
[2021-05-19] MEDS: SOD CHL 0.45% 1,000 ML IV SCH ×3 (01:24→17:00)
[2021-05-19] MEDS: PROPOFOL 100 ML IV SCH ×3 (04:03→21:08)
[2021-05-19 08:40] LABS: Basophils # (auto) 0.1 10 ^3/uL (0-0.2); Basophils % (auto) 0.5 % (0.0-2.0); Eosinophils # (auto) 0.4 10 ^3/uL (0-0.8); Eosinophils % (auto) 2.1 % (0.0-7.0); Hematocrit 37.5 % (41.0-53.0); Hemoglobin 12.9 g/dL (13.5-17.5); Lymphocytes # (auto) 1.5 10 ^3/uL (0.4-5.4); Lymphocytes % (auto) 8.9 % (10.0-50.0); Mean Corpuscular Hemoglobin 29.7 pg (28.0-32.0); Mean Corpuscular Hgb Conc. 34.4 g/dL (32.0-36.0); Mean Corpuscular Volume 86.3 fL (80.0-100.0); Monocytes # (auto) 0.5 10 ^3/uL (0-1.3); Neutrophils # (auto) 14.3 10 ^3/uL (1.6-8.6); Neutrophils % (auto) 85.5 % (37.0-80.0); Nucleated Red Blood Cells % 0.4 %; Red Blood Cells 4.34 10^6/uL (4.5-5.90); Red Cell Distribution Width 13.4 % (11.8-14.3)
[2021-05-19 08:55] LABS: Calcium 7.4 mg/dL (8.5-10.1)
[2021-05-19 09:29] LABS: White Blood Cell 15.5 10^3/uL (4.4-10.8)
[2021-05-19] MEDS: DexAMETHasone SOD PHOS 10MG/1ML VIAL INJ IV SCH (09:52)
[2021-05-19] MEDS: cefTRIAXone 1GM/50ML D5W 50 ML IV SCH (09:52)
[2021-05-19] MEDS: FUROSEMIDE 40 MG/4 ML VIAL IV SCH (09:52)
[2021-05-19] MEDS: ZINC SULFATE 220mg CAP or TAB PO SCH (09:52)
[2021-05-19] MEDS: QUEtiapine FUMARATE 25 MG TAB PO SCH ×2 (09:53→21:04)
[2021-05-19] MEDS: ACETAMINOPHEN 325 MG TAB PO PRN (09:53)
[2021-05-19] MEDS: ASCORBIC ACID 1,000 MG TAB PO SCH (09:53)
[2021-05-19] MEDS: ENOXAPARIN SOD 40 MG/0.4 ML SYRINGE SC SCH (09:53)
[2021-05-19] MEDS: CHOLECALCIFEROL (VITD3) 2,000 UNIT CAP/TAB PO SCH (09:53)
[2021-05-19] MEDS: MIDAZOLAM DRIP 50 mg/50mL 50 ML IV SCH (12:15)
[2021-05-19] MEDS: fentaNYL Drip 2500mCg/250mlNS 250 ML IV SCH ×2 (12:15→15:11)
[2021-05-19] MEDS: NOREPINEPHRINE 8 MG/250ML KIT 250 ML IV SCH (14:45)
[2021-05-19] MEDS: ARTIFICIAL TEARS 15ml EACHEYE PRN (21:01)
[2021-05-19] MEDS: INSULIN LANTUS (GLARGINE) 1 /0.01ml (100units/ml) SC SCH (22:00)
[2021-05-20] VITALS (98 sets, daily range): BP systolic 74–153; BP diastolic 48–87
[2021-05-20] MEDS: ACCU-CHEK COMFORT CURVE STRIP VI SCH ×4 (00:12→18:00)
[2021-05-20] MEDS: InsuLIN REG 1unit/0.01ml Soln (100units/ml) SC SCH ×4 (00:13→18:00)
[2021-05-20] MEDS: PROPOFOL 100 ML IV SCH ×2 (00:35→22:00)
[2021-05-20] MEDS: IPRATROPIUM BROM 0.5 MG/2.5ML INH SOL NEB SCH ×5 (02:00→22:25)
[2021-05-20] MEDS: NOREPINEPHRINE 8 MG/250ML KIT 250 ML IV SCH (03:00)
[2021-05-20] MEDS: SOD CHL 0.45% 1,000 ML IV SCH ×4 (03:00→22:00)
[2021-05-20] MEDS: fentaNYL Drip 2500mCg/250mlNS 250 ML IV SCH (03:10)
[2021-05-20] MEDS: cefTRIAXone 1GM/50ML D5W 50 ML IV SCH (09:00)
[2021-05-20] MEDS: CHOLECALCIFEROL (VITD3) 2,000 UNIT CAP/TAB PO SCH (10:00)
[2021-05-20] MEDS: DexAMETHasone SOD PHOS 10MG/1ML VIAL INJ IV SCH (10:00)
[2021-05-20] MEDS: ASCORBIC ACID 1,000 MG TAB PO SCH (10:00)
[2021-05-20] MEDS: FUROSEMIDE 40 MG/4 ML VIAL IV SCH (10:00)
[2021-05-20] MEDS: QUEtiapine FUMARATE 25 MG TAB PO SCH ×2 (10:00→22:00)
[2021-05-20] MEDS: ENOXAPARIN SOD 40 MG/0.4 ML SYRINGE SC SCH (10:00)
[2021-05-20] MEDS: ZINC SULFATE 220mg CAP or TAB PO SCH (10:00)
[2021-05-20 10:12] LABS: Basophils # (auto) 0 10 ^3/uL (0-0.2); Basophils % (auto) 0.2 % (0.0-2.0); Eosinophils # (auto) 0.2 10 ^3/uL (0-0.8); Eosinophils % (auto) 1.6 % (0.0-7.0); Hematocrit 32.4 % (41.0-53.0); Hemoglobin 11.5 g/dL (13.5-17.5); Lymphocytes # (auto) 0.9 10 ^3/uL (0.4-5.4); Lymphocytes % (auto) 6.5 % (10.0-50.0); Mean Corpuscular Hemoglobin 30.3 pg (28.0-32.0); Mean Corpuscular Hgb Conc. 35.5 g/dL (32.0-36.0); Mean Corpuscular Volume 85.3 fL (80.0-100.0); Monocytes # (auto) 0.5 10 ^3/uL (0-1.3); Monocytes % (auto) 3.9 % (0.0-12.0); Neutrophils # (auto) 11.7 10 ^3/uL (1.6-8.6); Neutrophils % (auto) 87.8 % (37.0-80.0); Nucleated Red Blood Cells % 0.1 %; Red Cell Distribution Width 13.5 % (11.8-14.3); White Blood Cell 13.3 10^3/uL (4.4-10.8)
[2021-05-20 10:13] LABS: BUN/Creatinine Ratio 27.3; Calcium 7.9 mg/dL (8.5-10.1); Potassium 3.4 mmol/L (3.5-5.1)
[2021-05-20] MEDS: MIDAZOLAM DRIP 50 mg/50mL 50 ML IV SCH (12:15)
[2021-05-20] MEDS: POTASSIUM CHL 10MEQ/50ML 50 ML IV SCH ×2 (14:15→15:15)
[2021-05-20] MEDS: INSULIN LANTUS (GLARGINE) 1 /0.01ml (100units/ml) SC SCH (22:00)
[2021-05-21] VITALS (94 sets, daily range): BP systolic 75–147; BP diastolic 48–84
[2021-05-21] MEDS: IPRATROPIUM BROM 0.5 MG/2.5ML INH SOL NEB SCH ×6 (02:42→22:02)
[2021-05-21] MEDS: ACCU-CHEK COMFORT CURVE STRIP VI SCH ×4 (06:00→18:26)
[2021-05-21] MEDS: InsuLIN REG 1unit/0.01ml Soln (100units/ml) SC SCH ×4 (06:00→18:25)
[2021-05-21] MEDS: cefTRIAXone 1GM/50ML D5W 50 ML IV SCH (09:00)
[2021-05-21] MEDS: SOD CHL 0.45% 1,000 ML IV SCH ×2 (09:00→17:00)
[2021-05-21] MEDS: FUROSEMIDE 40 MG/4 ML VIAL IV SCH (10:00)
[2021-05-21] MEDS: ENOXAPARIN SOD 40 MG/0.4 ML SYRINGE SC SCH (10:00)
[2021-05-21] MEDS: ZINC SULFATE 220mg CAP or TAB PO SCH (10:00)
[2021-05-21] MEDS: ASCORBIC ACID 1,000 MG TAB PO SCH (10:00)
[2021-05-21] MEDS: QUEtiapine FUMARATE 25 MG TAB PO SCH ×2 (10:00→23:06)
[2021-05-21] MEDS: CHOLECALCIFEROL (VITD3) 2,000 UNIT CAP/TAB PO SCH (10:00)
[2021-05-21] MEDS: DexAMETHasone SOD PHOS 10MG/1ML VIAL INJ IV SCH (10:00)
[2021-05-21 10:11] LABS: Basophils # (auto) 0 10 ^3/uL (0-0.2); Basophils % (auto) 0.3 % (0.0-2.0); Eosinophils # (auto) 0.2 10 ^3/uL (0-0.8); Eosinophils % (auto) 1.6 % (0.0-7.0); Hematocrit 30.7 % (41.0-53.0); Hemoglobin 10.6 g/dL (13.5-17.5); Lymphocytes # (auto) 0.8 10 ^3/uL (0.4-5.4); Lymphocytes % (auto) 5.5 % (10.0-50.0); Mean Corpuscular Hemoglobin 29.4 pg (28.0-32.0); Mean Corpuscular Hgb Conc. 34.6 g/dL (32.0-36.0); Monocytes # (auto) 0.6 10 ^3/uL (0-1.3); Monocytes % (auto) 4.2 % (0.0-12.0); Neutrophils # (auto) 12.4 10 ^3/uL (1.6-8.6); Neutrophils % (auto) 88.4 % (37.0-80.0); Nucleated Red Blood Cells % 0.1 %; Red Blood Cells 3.61 10^6/uL (4.5-5.90); Red Cell Distribution Width 13.9 % (11.8-14.3)
[2021-05-21 10:17] LABS: Albumin 1.5 g/dL (3.4-5.0); Calcium 7.7 mg/dL (8.5-10.1)
[2021-05-21 10:31] LABS: BUN/Creatinine Ratio 33.3; Bilirubin, Total 0.8 mg/dL (0.2-1.0); Total Protein 5.4 g/dL (6.4-8.2)
[2021-05-21 10:33] LABS: Potassium 2.8 mmol/L (3.5-5.1)
[2021-05-21] MEDS ORDERED: cefTRIAXone 1GM/50ML D5W 50 ML IV ONE (10:34)
[2021-05-21] MEDS ORDERED: POTASSIUM EFFERVESENT TAB 25 MEQ GT ONE ×2 (11:15→12:15)
[2021-05-21] MEDS: fentaNYL Drip 2500mCg/250mlNS 250 ML IV SCH (12:15)
[2021-05-21] MEDS: MIDAZOLAM DRIP 50 mg/50mL 50 ML IV SCH (12:15)
[2021-05-21] MEDS: NOREPINEPHRINE 8 MG/250ML KIT 250 ML IV SCH (14:45)
[2021-05-21] MEDS: INSULIN LANTUS (GLARGINE) 1 /0.01ml (100units/ml) SC SCH (22:00)
[2021-05-22] VITALS (97 sets, daily range): BP systolic 61–151; BP diastolic 38–86
[2021-05-22] MEDS: ACCU-CHEK COMFORT CURVE STRIP VI SCH ×4 (02:01→18:24)
[2021-05-22] MEDS: SOD CHL 0.45% 1,000 ML IV SCH ×2 (02:02→20:00)
[2021-05-22] MEDS: IPRATROPIUM BROM 0.5 MG/2.5ML INH SOL NEB SCH ×6 (02:10→22:18)
[2021-05-22] MEDS: InsuLIN REG 1unit/0.01ml Soln (100units/ml) SC SCH ×4 (06:00→18:24)
[2021-05-22] MEDS: cefTRIAXone 1GM/50ML D5W 50 ML IV SCH (09:00)
[2021-05-22] MEDS: QUEtiapine FUMARATE 25 MG TAB PO SCH ×2 (10:00→22:00)
[2021-05-22] MEDS: FUROSEMIDE 40 MG/4 ML VIAL IV SCH (10:00)
[2021-05-22] MEDS: CHOLECALCIFEROL (VITD3) 2,000 UNIT CAP/TAB PO SCH (10:00)
[2021-05-22] MEDS: DexAMETHasone SOD PHOS 10MG/1ML VIAL INJ IV SCH (10:00)
[2021-05-22] MEDS: ZINC SULFATE 220mg CAP or TAB PO SCH (10:00)
[2021-05-22] MEDS: ENOXAPARIN SOD 40 MG/0.4 ML SYRINGE SC SCH (10:00)
[2021-05-22] MEDS: ASCORBIC ACID 1,000 MG TAB PO SCH (10:00)
[2021-05-22] MEDS: fentaNYL Drip 2500mCg/250mlNS 250 ML IV SCH (12:15)
[2021-05-22] MEDS: MIDAZOLAM DRIP 50 mg/50mL 50 ML IV SCH (12:15)
[2021-05-22] MEDS: PROPOFOL 100 ML IV SCH (12:15)
[2021-05-22] MEDS: NOREPINEPHRINE 8 MG/250ML KIT 250 ML IV SCH (12:16)
[2021-05-22] MEDS: INSULIN LANTUS (GLARGINE) 1 /0.01ml (100units/ml) SC SCH (22:00)
[2021-05-23] VITALS (102 sets, daily range): BP systolic 84–141; BP diastolic 50–84
[2021-05-23] MEDS: SOD CHL 0.45% 1,000 ML IV SCH ×4 (00:48→16:15)
[2021-05-23] MEDS: ACCU-CHEK COMFORT CURVE STRIP VI SCH ×4 (00:49→17:17)
[2021-05-23] MEDS: fentaNYL Drip 2500mCg/250mlNS 250 ML IV SCH ×2 (01:13→18:01)
[2021-05-23] MEDS: PROPOFOL 100 ML IV SCH ×3 (01:14→18:01)
[2021-05-23] MEDS: IPRATROPIUM BROM 0.5 MG/2.5ML INH SOL NEB SCH ×6 (02:25→22:57)
[2021-05-23] MEDS: InsuLIN REG 1unit/0.01ml Soln (100units/ml) SC SCH ×4 (06:00→17:21)
[2021-05-23] MEDS: QUEtiapine FUMARATE 25 MG TAB PO SCH ×2 (10:00→21:56)
[2021-05-23] MEDS: CHOLECALCIFEROL (VITD3) 2,000 UNIT CAP/TAB PO SCH (10:00)
[2021-05-23] MEDS: ASCORBIC ACID 1,000 MG TAB PO SCH (10:00)
[2021-05-23] MEDS: ZINC SULFATE 220mg CAP or TAB PO SCH (10:00)
[2021-05-23] MEDS: cefTRIAXone 1GM/50ML D5W 50 ML IV SCH (10:01)
[2021-05-23] MEDS: DexAMETHasone SOD PHOS 10MG/1ML VIAL INJ IV SCH (10:03)
[2021-05-23] MEDS: FUROSEMIDE 40 MG/4 ML VIAL IV SCH (10:07)
[2021-05-23] MEDS: ENOXAPARIN SOD 40 MG/0.4 ML SYRINGE SC SCH (10:08)
[2021-05-23] MEDS: MIDAZOLAM DRIP 50 mg/50mL 50 ML IV SCH ×2 (13:38→18:02)
[2021-05-23] MEDS: NOREPINEPHRINE 8 MG/250ML KIT 250 ML IV SCH (13:39)
[2021-05-23] MEDS: INSULIN LANTUS (GLARGINE) 1 /0.01ml (100units/ml) SC SCH (21:02)
[2021-05-24] VITALS (97 sets, daily range): BP systolic 71–161; BP diastolic 39–87
[2021-05-24] MEDS: INSULIN LANTUS (GLARGINE) 1 /0.01ml (100units/ml) SC SCH (00:15)
[2021-05-24] MEDS: SOD CHL 0.45% 1,000 ML IV SCH ×2 (01:07→09:27)
[2021-05-24] MEDS: IPRATROPIUM BROM 0.5 MG/2.5ML INH SOL NEB SCH ×5 (03:06→19:11)
[2021-05-24] MEDS: ACCU-CHEK COMFORT CURVE STRIP VI SCH ×4 (05:09→18:30)
[2021-05-24] MEDS: InsuLIN REG 1unit/0.01ml Soln (100units/ml) SC SCH ×4 (06:18→19:05)
[2021-05-24] MEDS: cefTRIAXone 1GM/50ML D5W 50 ML IV SCH (09:26)
[2021-05-24] MEDS: DexAMETHasone SOD PHOS 10MG/1ML VIAL INJ IV SCH (09:27)
[2021-05-24] MEDS: FUROSEMIDE 40 MG/4 ML VIAL IV SCH (09:28)
[2021-05-24] MEDS: ENOXAPARIN SOD 40 MG/0.4 ML SYRINGE SC SCH (09:28)
[2021-05-24] MEDS: QUEtiapine FUMARATE 25 MG TAB PO SCH ×2 (10:00→21:03)
[2021-05-24] MEDS: ASCORBIC ACID 1,000 MG TAB PO SCH (10:00)
[2021-05-24] MEDS: CHOLECALCIFEROL (VITD3) 2,000 UNIT CAP/TAB PO SCH (10:00)
[2021-05-24] MEDS: ZINC SULFATE 220mg CAP or TAB PO SCH (10:00)
[2021-05-24 14:30] LABS: Basophils # (auto) 0.1 10 ^3/uL (0-0.2); Basophils % (auto) 0.3 % (0.0-2.0); Eosinophils # (auto) 0.4 10 ^3/uL (0-0.8); Eosinophils % (auto) 1.9 % (0.0-7.0); Hematocrit 33.6 % (41.0-53.0); Hemoglobin 11.8 g/dL (13.5-17.5); Lymphocytes # (auto) 0.7 10 ^3/uL (0.4-5.4); Lymphocytes % (auto) 3.1 % (10.0-50.0); Mean Corpuscular Hemoglobin 29.8 pg (28.0-32.0); Mean Corpuscular Hgb Conc. 35.1 g/dL (32.0-36.0); Mean Corpuscular Volume 84.8 fL (80.0-100.0); Monocytes # (auto) 0.4 10 ^3/uL (0-1.3); Monocytes % (auto) 1.9 % (0.0-12.0); Neutrophils # (auto) 21.7 10 ^3/uL (1.6-8.6); Neutrophils % (auto) 92.8 % (37.0-80.0); Nucleated Red Blood Cells % 0.1 %; Red Blood Cells 3.96 10^6/uL (4.5-5.90); Red Cell Distribution Width 14.4 % (11.8-14.3); White Blood Cell 23.4 10^3/uL (4.4-10.8)
[2021-05-24 14:44] LABS: Albumin 1.7 g/dL (3.4-5.0); Magnesium 2.1 mg/dL (1.6-2.6); Potassium 3.3 mmol/L (3.5-5.1)
[2021-05-24 14:47] LABS: BUN/Creatinine Ratio 26.5; Bilirubin, Total 0.9 mg/dL (0.2-1.0); Phosphorus 2.6 mg/dL (2.5-4.90)
[2021-05-24] MEDS ORDERED: ATROPINE SULFATE 1 MG/1 ML VIAL ONE (15:58)
[2021-05-24] MEDS: NOREPINEPHRINE 8 MG/250ML KIT 250 ML IV SCH ×2 (15:59→16:14)
[2021-05-24] MEDS: POTASSIUM CHL 10MEQ/50ML 50 ML IV SCH ×2 (17:42→18:30)
[2021-05-24] MEDS: SODIUM CHLORIDE 0.9% 1,000 ML IV SCH (17:42)
[2021-05-24] MEDS: fentaNYL Drip 2500mCg/250mlNS 250 ML IV SCH (23:56)
[2021-05-24] MEDS: PROPOFOL 100 ML IV SCH (23:59)
[2021-05-25] VITALS (90 sets, daily range): BP systolic 94–181; BP diastolic 46–100
[2021-05-25] MEDS: SODIUM CHLORIDE 0.9% 1,000 ML IV SCH ×3 (01:00→17:00)
[2021-05-25] MEDS: IPRATROPIUM BROM 0.5 MG/2.5ML INH SOL NEB SCH ×7 (03:03→22:00)
[2021-05-25 05:48] LABS: Basophils # (auto) 0.1 10 ^3/uL (0-0.2); Basophils % (auto) 0.5 % (0.0-2.0); Eosinophils # (auto) 0.2 10 ^3/uL (0-0.8); Eosinophils % (auto) 1.1 % (0.0-7.0); Hematocrit 33.1 % (41.0-53.0); Hemoglobin 11.5 g/dL (13.5-17.5); Lymphocytes # (auto) 1.4 10 ^3/uL (0.4-5.4); Lymphocytes % (auto) 8.3 % (10.0-50.0); Mean Corpuscular Hemoglobin 29.6 pg (28.0-32.0); Mean Corpuscular Hgb Conc. 34.8 g/dL (32.0-36.0); Mean Corpuscular Volume 85.1 fL (80.0-100.0); Monocytes # (auto) 0.6 10 ^3/uL (0-1.3); Monocytes % (auto) 3.4 % (0.0-12.0); Neutrophils # (auto) 14.5 10 ^3/uL (1.6-8.6); Neutrophils % (auto) 86.7 % (37.0-80.0); Nucleated Red Blood Cells % 0.2 %; Red Blood Cells 3.89 10^6/uL (4.5-5.90); Red Cell Distribution Width 14.2 % (11.8-14.3); White Blood Cell 16.7 10^3/uL (4.4-10.8)
[2021-05-25] MEDS: InsuLIN REG 1unit/0.01ml Soln (100units/ml) SC SCH ×4 (06:00→18:24)
[2021-05-25] MEDS: ACCU-CHEK COMFORT CURVE STRIP VI SCH ×4 (06:02→18:25)
[2021-05-25] MEDS: cefTRIAXone 1GM/50ML D5W 50 ML IV SCH (09:00)
[2021-05-25] MEDS: ASCORBIC ACID 1,000 MG TAB PO SCH (10:00)
[2021-05-25] MEDS: CHOLECALCIFEROL (VITD3) 2,000 UNIT CAP/TAB PO SCH (10:00)
[2021-05-25] MEDS: QUEtiapine FUMARATE 25 MG TAB PO SCH ×2 (10:00→23:00)
[2021-05-25] MEDS: FUROSEMIDE 40 MG/4 ML VIAL IV SCH (10:00)
[2021-05-25] MEDS: ENOXAPARIN SOD 40 MG/0.4 ML SYRINGE SC SCH (10:00)
[2021-05-25] MEDS: ZINC SULFATE 220mg CAP or TAB PO SCH (10:00)
[2021-05-25] MEDS: DexAMETHasone SOD PHOS 10MG/1ML VIAL INJ IV SCH (10:00)
[2021-05-25] MEDS: MIDAZOLAM DRIP 50 mg/50mL 50 ML IV SCH (12:15)
[2021-05-25] MEDS: NOREPINEPHRINE 8 MG/250ML KIT 250 ML IV SCH (14:45)
[2021-05-25] MEDS: LORazepam 2MG/ML-1ML VIAL IV PRN (16:47)
[2021-05-25 19:27] LABS: Alanine Aminotransferase 30 U/L (16-61); Albumin 1.6 g/dL (3.4-5.0); Anion Gap 6 (5-15); Aspartate Aminotransferase 27 U/L (15-37); BUN/Creatinine Ratio 21.6; Blood Urea Nitrogen 8 mg/dL (7-18); Calcium 7.6 mg/dL (8.5-10.1); Carbon Dioxide 34 mmol/L (21-32); Chloride 96 mmol/L (98-107); GFR African American 304 mL/min; GFR Non-African American 251 mL/min; Glucose 195 mg/dL (74-106); Potassium 3.4 mmol/L (3.5-5.1); Sodium 136 mmol/L (136-145)
[2021-05-25 20:34] LABS: Alkaline Phosphatase 97 U/L (45-117); Bilirubin, Total 0.6 mg/dL (0.2-1.0); Total Protein 5.8 g/dL (6.4-8.2)
[2021-05-25] MEDS ORDERED: ETOMIDATE (2MG/ML) 20ML VIAL IV ONE ×2 (21:00→21:06)
[2021-05-25] MEDS ORDERED: SUCCINYLCHOLINE CHLORIDE 20 MG/ML 10ML VIAL IV ONE ×2 (21:11→22:00)
[2021-05-25] MEDS: INSULIN LANTUS (GLARGINE) 1 /0.01ml (100units/ml) SC SCH (23:00)
[2021-05-26] VITALS (84 sets, daily range): BP systolic 85–145; BP diastolic 36–89
[2021-05-26] MEDS: InsuLIN REG 1unit/0.01ml Soln (100units/ml) SC SCH ×4 (00:20→18:00)
[2021-05-26] MEDS: ACCU-CHEK COMFORT CURVE STRIP VI SCH ×4 (00:36→18:28)
[2021-05-26] MEDS: SODIUM CHLORIDE 0.9% 1,000 ML IV SCH ×4 (00:37→21:59)
[2021-05-26] MEDS: IPRATROPIUM BROM 0.5 MG/2.5ML INH SOL NEB SCH ×6 (03:05→22:07)
[2021-05-26] MEDS: PROPOFOL 100 ML IV SCH ×2 (03:37)
[2021-05-26] MEDS: fentaNYL Drip 2500mCg/250mlNS 250 ML IV SCH (04:00)
[2021-05-26 05:33] LABS: Albumin 1.6 g/dL (3.4-5.0); BUN/Creatinine Ratio 20.9; Calcium 7.8 mg/dL (8.5-10.1); Hematocrit 35.1 % (41.0-53.0); Hemoglobin 11.9 g/dL (13.5-17.5); Mean Corpuscular Hemoglobin 28.9 pg (28.0-32.0); Mean Corpuscular Hgb Conc. 33.9 g/dL (32.0-36.0); Mean Corpuscular Volume 85.3 fL (80.0-100.0); Red Blood Cells 4.12 10^6/uL (4.5-5.90); Red Cell Distribution Width 14.6 % (11.8-14.3); White Blood Cell 23.5 10^3/uL (4.4-10.8)
[2021-05-26 05:36] LABS: Bilirubin, Total 0.8 mg/dL (0.2-1.0); Total Protein 5.7 g/dL (6.4-8.2)
[2021-05-26 06:10] LABS: Basophils % (manual) 0 (0.0-2.0); Blast Cells 0; Metamyelocytes % 0; Monocytes % (manual) 0 (0-12); Promyelocytes % 0; Reactive Lymphocytes 0
[2021-05-26 07:08] LABS: Band Neutrophils % (manual) 18; Eosinophils % (manual) 1 (0-7); Lymphocytes % (manual) 6 (10.0-50.0); Myelocytes % 1
[2021-05-26] MEDS: cefTRIAXone 1GM/50ML D5W 50 ML IV SCH (09:00)
[2021-05-26] MEDS: QUEtiapine FUMARATE 25 MG TAB PO SCH ×2 (10:00→21:41)
[2021-05-26] MEDS: FUROSEMIDE 40 MG/4 ML VIAL IV SCH (10:00)
[2021-05-26] MEDS: ASCORBIC ACID 1,000 MG TAB PO SCH (10:00)
[2021-05-26] MEDS: CHOLECALCIFEROL (VITD3) 2,000 UNIT CAP/TAB PO SCH (10:00)
[2021-05-26] MEDS: ZINC SULFATE 220mg CAP or TAB PO SCH (10:00)
[2021-05-26] MEDS: ENOXAPARIN SOD 40 MG/0.4 ML SYRINGE SC SCH (10:00)
[2021-05-26] MEDS ORDERED: POTASSIUM CHL 10MEQ/50ML 50 ML IV SCH (10:45)
[2021-05-26] MEDS: POTASSIUM CHL 10MEQ/50ML 50 ML IV SCH ×6 (12:00→17:00)
[2021-05-26] MEDS: MIDAZOLAM DRIP 50 mg/50mL 50 ML IV SCH (12:15)
[2021-05-26] MEDS: NOREPINEPHRINE 8 MG/250ML KIT 250 ML IV SCH (14:45)
[2021-05-26] MEDS: DexAMETHasone SOD PHOS 10MG/1ML VIAL INJ IV SCH (21:41)
[2021-05-26] MEDS: INSULIN LANTUS (GLARGINE) 1 /0.01ml (100units/ml) SC SCH (21:42)
[2021-05-27] VITALS (69 sets, daily range): BP systolic 84–171; BP diastolic 50–95
[2021-05-27] MEDS: InsuLIN REG 1unit/0.01ml Soln (100units/ml) SC SCH ×4 (00:31→18:00)
[2021-05-27] MEDS: IPRATROPIUM BROM 0.5 MG/2.5ML INH SOL NEB SCH ×6 (02:00→23:13)
[2021-05-27] MEDS: MIDAZOLAM DRIP 50 mg/50mL 50 ML IV SCH (03:17)
[2021-05-27] MEDS: PROPOFOL 100 ML IV SCH ×3 (03:17→19:35)
[2021-05-27] MEDS: fentaNYL Drip 2500mCg/250mlNS 250 ML IV SCH ×2 (03:17→19:35)
[2021-05-27] MEDS: NOREPINEPHRINE 8 MG/250ML KIT 250 ML IV SCH (03:28)
[2021-05-27] MEDS: ACCU-CHEK COMFORT CURVE STRIP VI SCH ×4 (05:56→18:04)
[2021-05-27 05:57] LABS: Basophils # (auto) 0 10 ^3/uL (0-0.2); Basophils % (auto) 0.2 % (0.0-2.0); Eosinophils # (auto) 0 10 ^3/uL (0-0.8); Hematocrit 30.9 % (41.0-53.0); Hemoglobin 10.7 g/dL (13.5-17.5); Lymphocytes # (auto) 0.3 10 ^3/uL (0.4-5.4); Lymphocytes % (auto) 1.4 % (10.0-50.0); Mean Corpuscular Hemoglobin 29.6 pg (28.0-32.0); Mean Corpuscular Hgb Conc. 34.6 g/dL (32.0-36.0); Mean Corpuscular Volume 85.3 fL (80.0-100.0); Monocytes # (auto) 0.4 10 ^3/uL (0-1.3); Neutrophils # (auto) 18.5 10 ^3/uL (1.6-8.6); Neutrophils % (auto) 96.4 % (37.0-80.0); Nucleated Red Blood Cells % 0.1 %; Red Blood Cells 3.62 10^6/uL (4.5-5.90); Red Cell Distribution Width 15.5 % (11.8-14.3); White Blood Cell 19.1 10^3/uL (4.4-10.8)
[2021-05-27 06:27] LABS: Albumin 1.5 g/dL (3.4-5.0); Bilirubin, Total 0.4 mg/dL (0.2-1.0); CRP High Sensitivity 18.3 mg/dL (< 0.3); Total Protein 5.6 g/dL (6.4-8.2)
[2021-05-27] MEDS: cefTRIAXone 1GM/50ML D5W 50 ML IV SCH (09:12)
[2021-05-27] MEDS: CHOLECALCIFEROL (VITD3) 2,000 UNIT CAP/TAB PO SCH (09:13)
[2021-05-27] MEDS: ENOXAPARIN SOD 40 MG/0.4 ML SYRINGE SC SCH (09:13)
[2021-05-27] MEDS: ZINC SULFATE 220mg CAP or TAB PO SCH (09:13)
[2021-05-27] MEDS: ASCORBIC ACID 1,000 MG TAB PO SCH (09:13)
[2021-05-27] MEDS: QUEtiapine FUMARATE 25 MG TAB PO SCH ×2 (09:14→21:48)
[2021-05-27] MEDS: FUROSEMIDE 40 MG/4 ML VIAL IV SCH (09:14)
[2021-05-27] MEDS: DexAMETHasone SOD PHOS 10MG/1ML VIAL INJ IV SCH ×2 (09:16→21:47)
[2021-05-27] MEDS: SODIUM CHLORIDE 0.9% 1,000 ML IV SCH ×2 (16:15→17:00)
[2021-05-27] MEDS: INSULIN LANTUS (GLARGINE) 1 /0.01ml (100units/ml) SC SCH (21:49)
[2021-05-28] VITALS (56 sets, daily range): BP systolic 108–161; BP diastolic 55–90
[2021-05-28] MEDS: SODIUM CHLORIDE 0.9% 1,000 ML IV SCH ×3 (01:00→17:25)
[2021-05-28] MEDS: IPRATROPIUM BROM 0.5 MG/2.5ML INH SOL NEB SCH ×6 (02:08→22:09)
[2021-05-28] MEDS: ACCU-CHEK COMFORT CURVE STRIP VI SCH ×4 (06:00→18:00)
[2021-05-28] MEDS: InsuLIN REG 1unit/0.01ml Soln (100units/ml) SC SCH ×3 (06:10→11:46)
[2021-05-28] MEDS: cefTRIAXone 1GM/50ML D5W 50 ML IV SCH (09:00)
[2021-05-28] MEDS: QUEtiapine FUMARATE 25 MG TAB PO SCH ×2 (10:00→22:00)
[2021-05-28] MEDS: CHOLECALCIFEROL (VITD3) 2,000 UNIT CAP/TAB PO SCH (10:00)
[2021-05-28] MEDS: ZINC SULFATE 220mg CAP or TAB PO SCH (10:00)
[2021-05-28] MEDS: DexAMETHasone SOD PHOS 10MG/1ML VIAL INJ IV SCH ×2 (10:00→22:00)
[2021-05-28] MEDS: ENOXAPARIN SOD 40 MG/0.4 ML SYRINGE SC SCH (10:00)
[2021-05-28] MEDS: FUROSEMIDE 40 MG/4 ML VIAL IV SCH (10:00)
[2021-05-28] MEDS: ASCORBIC ACID 1,000 MG TAB PO SCH (10:00)
[2021-05-28] MEDS: MIDAZOLAM DRIP 50 mg/50mL 50 ML IV SCH (12:15)
[2021-05-28] MEDS: NOREPINEPHRINE 8 MG/250ML KIT 250 ML IV SCH (14:45)
[2021-05-28] MEDS: fentaNYL Drip 2500mCg/250mlNS 250 ML IV SCH (17:12)
[2021-05-28] MEDS: INSULIN LANTUS (GLARGINE) 1 /0.01ml (100units/ml) SC SCH (22:00)
[2021-05-29] VITALS (96 sets, daily range): BP systolic 71–151; BP diastolic 42–85
[2021-05-29] MEDS: SODIUM CHLORIDE 0.9% 1,000 ML IV SCH ×3 (01:00→19:37)
[2021-05-29] MEDS: IPRATROPIUM BROM 0.5 MG/2.5ML INH SOL NEB SCH ×6 (02:06→22:43)
[2021-05-29] MEDS: ACCU-CHEK COMFORT CURVE STRIP VI SCH ×4 (05:49→18:20)
[2021-05-29] MEDS: InsuLIN REG 1unit/0.01ml Soln (100units/ml) SC SCH ×4 (05:49→18:00)
[2021-05-29] MEDS: cefTRIAXone 1GM/50ML D5W 50 ML IV SCH (09:31)
[2021-05-29] MEDS: FUROSEMIDE 40 MG/4 ML VIAL IV SCH (09:32)
[2021-05-29] MEDS: ASCORBIC ACID 1,000 MG TAB PO SCH (09:32)
[2021-05-29] MEDS: ENOXAPARIN SOD 40 MG/0.4 ML SYRINGE SC SCH (09:32)
[2021-05-29] MEDS: DexAMETHasone SOD PHOS 10MG/1ML VIAL INJ IV SCH ×2 (09:32→21:32)
[2021-05-29] MEDS: ZINC SULFATE 220mg CAP or TAB PO SCH (09:33)
[2021-05-29] MEDS: CHOLECALCIFEROL (VITD3) 2,000 UNIT CAP/TAB PO SCH (09:33)
[2021-05-29] MEDS: QUEtiapine FUMARATE 25 MG TAB PO SCH ×2 (10:00→21:32)
[2021-05-29] MEDS: MIDAZOLAM DRIP 50 mg/50mL 50 ML IV SCH (12:15)
[2021-05-29] MEDS: PROPOFOL 100 ML IV SCH ×2 (14:01→19:00)
[2021-05-29] MEDS: NOREPINEPHRINE 8 MG/250ML KIT 250 ML IV SCH (14:45)
[2021-05-29] MEDS: INSULIN LANTUS (GLARGINE) 1 /0.01ml (100units/ml) SC SCH (21:32)
[2021-05-30] VITALS (101 sets, daily range): BP systolic 87–165; BP diastolic 51–84
[2021-05-30] MEDS: SODIUM CHLORIDE 0.9% 1,000 ML IV SCH ×3 (01:00→17:01)
[2021-05-30] MEDS: IPRATROPIUM BROM 0.5 MG/2.5ML INH SOL NEB SCH ×6 (02:34→22:20)
[2021-05-30] MEDS: DEXTROSE (50%) 50ML SYRG IV PRN (06:00)
[2021-05-30] MEDS: InsuLIN REG 1unit/0.01ml Soln (100units/ml) SC SCH ×4 (06:00→17:28)
[2021-05-30] MEDS: ACCU-CHEK COMFORT CURVE STRIP VI SCH ×4 (06:00→17:28)
[2021-05-30] MEDS: cefTRIAXone 1GM/50ML D5W 50 ML IV SCH (08:32)
[2021-05-30] MEDS: DexAMETHasone SOD PHOS 10MG/1ML VIAL INJ IV SCH ×2 (09:33→21:42)
[2021-05-30] MEDS: CHOLECALCIFEROL (VITD3) 2,000 UNIT CAP/TAB PO SCH (09:34)
[2021-05-30] MEDS: ASCORBIC ACID 1,000 MG TAB PO SCH (09:34)
[2021-05-30] MEDS: FUROSEMIDE 40 MG/4 ML VIAL IV SCH (09:34)
[2021-05-30] MEDS: ENOXAPARIN SOD 40 MG/0.4 ML SYRINGE SC SCH (09:34)
[2021-05-30] MEDS: QUEtiapine FUMARATE 25 MG TAB PO SCH ×2 (09:34→21:43)
[2021-05-30] MEDS: ZINC SULFATE 220mg CAP or TAB PO SCH (09:34)
[2021-05-30] MEDS: MIDAZOLAM DRIP 50 mg/50mL 50 ML IV SCH (12:15)
[2021-05-30] MEDS: fentaNYL Drip 2500mCg/250mlNS 250 ML IV SCH (13:21)
[2021-05-30] MEDS: NOREPINEPHRINE 8 MG/250ML KIT 250 ML IV SCH (14:45)
[2021-05-30] MEDS: PROPOFOL 100 ML IV SCH (16:00)
[2021-05-30] MEDS: INSULIN LANTUS (GLARGINE) 1 /0.01ml (100units/ml) SC SCH (21:43)
[2021-05-31] VITALS (98 sets, daily range): BP systolic 81–153; BP diastolic 47–83
[2021-05-31] MEDS: SODIUM CHLORIDE 0.9% 1,000 ML IV SCH ×3 (01:00→17:00)
[2021-05-31] MEDS: IPRATROPIUM BROM 0.5 MG/2.5ML INH SOL NEB SCH ×6 (01:59→22:27)
[2021-05-31 05:24] LABS: Basophils # (auto) 0 10 ^3/uL (0-0.2); Basophils % (auto) 0.2 % (0.0-2.0); Eosinophils # (auto) 0 10 ^3/uL (0-0.8); Hematocrit 28.9 % (41.0-53.0); Hemoglobin 10.2 g/dL (13.5-17.5); Lymphocytes # (auto) 0.4 10 ^3/uL (0.4-5.4); Mean Corpuscular Hgb Conc. 35.3 g/dL (32.0-36.0); Mean Corpuscular Volume 84.9 fL (80.0-100.0); Monocytes # (auto) 0.6 10 ^3/uL (0-1.3); Neutrophils # (auto) 9.3 10 ^3/uL (1.6-8.6); Neutrophils % (auto) 89.8 % (37.0-80.0); Red Blood Cells 3.41 10^6/uL (4.5-5.90); Red Cell Distribution Width 15.1 % (11.8-14.3); White Blood Cell 10.4 10^3/uL (4.4-10.8)
[2021-05-31 05:35] LABS: BUN/Creatinine Ratio 57.1; Calcium 7.4 mg/dL (8.5-10.1); Potassium 3.7 mmol/L (3.5-5.1)
[2021-05-31] MEDS: ACCU-CHEK COMFORT CURVE STRIP VI SCH ×4 (06:00→18:00)
[2021-05-31] MEDS: PROPOFOL 100 ML IV SCH ×5 (06:00→20:33)
[2021-05-31] MEDS: InsuLIN REG 1unit/0.01ml Soln (100units/ml) SC SCH ×4 (06:00→18:00)
[2021-05-31] MEDS: fentaNYL Drip 2500mCg/250mlNS 250 ML IV SCH (09:39)
[2021-05-31] MEDS: CHOLECALCIFEROL (VITD3) 2,000 UNIT CAP/TAB PO SCH (09:49)
[2021-05-31] MEDS: QUEtiapine FUMARATE 25 MG TAB PO SCH ×2 (09:49→21:54)
[2021-05-31] MEDS: ZINC SULFATE 220mg CAP or TAB PO SCH (09:49)
[2021-05-31] MEDS: cefTRIAXone 1GM/50ML D5W 50 ML IV SCH (09:49)
[2021-05-31] MEDS: ASCORBIC ACID 1,000 MG TAB PO SCH (09:49)
[2021-05-31] MEDS: DexAMETHasone SOD PHOS 10MG/1ML VIAL INJ IV SCH ×2 (09:50→21:54)
[2021-05-31] MEDS: ENOXAPARIN SOD 40 MG/0.4 ML SYRINGE SC SCH (09:50)
[2021-05-31] MEDS: FUROSEMIDE 40 MG/4 ML VIAL IV SCH (09:52)
[2021-05-31] MEDS: MIDAZOLAM DRIP 50 mg/50mL 50 ML IV SCH (12:15)
[2021-05-31] MEDS: NOREPINEPHRINE 8 MG/250ML KIT 250 ML IV SCH ×2 (14:45→23:00)
[2021-05-31] MEDS: Glucerna 1.2 Cal 1Liter BOTTLE GT SCH (15:42)
[2021-05-31] MEDS: INSULIN LANTUS (GLARGINE) 1 /0.01ml (100units/ml) SC SCH (21:56)
[2021-06-01] VITALS (95 sets, daily range): BP systolic 90–150; BP diastolic 55–91
[2021-06-01] MEDS: SODIUM CHLORIDE 0.9% 1,000 ML IV SCH ×4 (01:04→19:07)
[2021-06-01] MEDS: IPRATROPIUM BROM 0.5 MG/2.5ML INH SOL NEB SCH ×5 (02:19→22:02)
[2021-06-01] MEDS: ACCU-CHEK COMFORT CURVE STRIP VI SCH ×4 (05:07→18:00)
[2021-06-01] MEDS: PROPOFOL 100 ML IV SCH ×2 (05:10→18:26)
[2021-06-01] MEDS: InsuLIN REG 1unit/0.01ml Soln (100units/ml) SC SCH ×4 (06:00→18:00)
[2021-06-01] MEDS: ZINC SULFATE 220mg CAP or TAB PO SCH (10:05)
[2021-06-01] MEDS: DexAMETHasone SOD PHOS 10MG/1ML VIAL INJ IV SCH ×2 (10:05→21:54)
[2021-06-01] MEDS: FUROSEMIDE 40 MG/4 ML VIAL IV SCH (10:05)
[2021-06-01] MEDS: ASCORBIC ACID 1,000 MG TAB PO SCH (10:06)
[2021-06-01] MEDS: ENOXAPARIN SOD 40 MG/0.4 ML SYRINGE SC SCH (10:06)
[2021-06-01] MEDS: CHOLECALCIFEROL (VITD3) 2,000 UNIT CAP/TAB PO SCH (10:06)
[2021-06-01] MEDS: QUEtiapine FUMARATE 25 MG TAB PO SCH ×2 (10:06→21:54)
[2021-06-01] MEDS: cefTRIAXone 1GM/50ML D5W 50 ML IV SCH (10:08)
[2021-06-01] MEDS: fentaNYL Drip 2500mCg/250mlNS 250 ML IV SCH (10:09)
[2021-06-01] MEDS: DEXTROSE (50%) 50ML SYRG IV PRN (11:45)
[2021-06-01] MEDS: MIDAZOLAM DRIP 50 mg/50mL 50 ML IV SCH (12:15)
[2021-06-01] MEDS: INSULIN LANTUS (GLARGINE) 1 /0.01ml (100units/ml) SC SCH (21:55)
[2021-06-01] MEDS ORDERED: VANCOMYCIN PER PHARMACY 0 MG IV SCH (23:45)
[2021-06-02] VITALS (104 sets, daily range): BP systolic 87–135; BP diastolic 53–85
[2021-06-02] MEDS: PIPERACILLIN-TAZOB 3.375GM 100 ML IV SCH ×4 (00:01→23:27)
[2021-06-02] MEDS: ACCU-CHEK COMFORT CURVE STRIP VI SCH ×5 (00:01→23:27)
[2021-06-02] MEDS: InsuLIN REG 1unit/0.01ml Soln (100units/ml) SC SCH ×5 (00:03→23:29)
[2021-06-02] MEDS: PROPOFOL 100 ML IV SCH ×3 (01:34→19:00)
[2021-06-02] MEDS: IPRATROPIUM BROM 0.5 MG/2.5ML INH SOL NEB SCH ×6 (02:32→22:18)
[2021-06-02] MEDS: fentaNYL Drip 2500mCg/250mlNS 250 ML IV SCH ×2 (04:57→22:00)
[2021-06-02 05:04] LABS: Basophils # (auto) 0 10 ^3/uL (0-0.2); Eosinophils # (auto) 0 10 ^3/uL (0-0.8); Eosinophils % (auto) 0.1 % (0.0-7.0); Hematocrit 29.8 % (41.0-53.0); Hemoglobin 10.2 g/dL (13.5-17.5); Lymphocytes # (auto) 0.4 10 ^3/uL (0.4-5.4); Lymphocytes % (auto) 2.6 % (10.0-50.0); Mean Corpuscular Hemoglobin 29.6 pg (28.0-32.0); Mean Corpuscular Hgb Conc. 34.3 g/dL (32.0-36.0); Mean Corpuscular Volume 86.2 fL (80.0-100.0); Monocytes # (auto) 0.6 10 ^3/uL (0-1.3); Neutrophils # (auto) 13.4 10 ^3/uL (1.6-8.6); Neutrophils % (auto) 93.3 % (37.0-80.0); Nucleated Red Blood Cells % 0.3 %; Red Blood Cells 3.46 10^6/uL (4.5-5.90); Red Cell Distribution Width 15.7 % (11.8-14.3); White Blood Cell 14.4 10^3/uL (4.4-10.8)
[2021-06-02 05:34] LABS: BUN/Creatinine Ratio 39.3; Calcium 7.8 mg/dL (8.5-10.1)
[2021-06-02] MEDS ORDERED: POTASSIUM CHL 20 Meq TABLET PO ONE (06:45)
[2021-06-02] MEDS: SODIUM CHLORIDE 0.9% 1,000 ML IV SCH (08:17)
[2021-06-02] MEDS: POTASSIUM CHL 10MEQ/50ML 50 ML IV SCH ×4 (09:00→11:52)
[2021-06-02] MEDS: DexAMETHasone SOD PHOS 10MG/1ML VIAL INJ IV SCH ×2 (09:22→21:56)
[2021-06-02] MEDS: FUROSEMIDE 40 MG/4 ML VIAL IV SCH (09:23)
[2021-06-02] MEDS: ZINC SULFATE 220mg CAP or TAB PO SCH (10:00)
[2021-06-02] MEDS: ASCORBIC ACID 1,000 MG TAB PO SCH (10:00)
[2021-06-02] MEDS: CHOLECALCIFEROL (VITD3) 2,000 UNIT CAP/TAB PO SCH (10:00)
[2021-06-02] MEDS: QUEtiapine FUMARATE 25 MG TAB PO SCH ×2 (10:20→21:56)
[2021-06-02] MEDS: ENOXAPARIN SOD 40 MG/0.4 ML SYRINGE SC SCH (10:20)
[2021-06-02] MEDS ORDERED: VANCOMYCIN 1GM/250ML 250 ML IV ONE ×2 (11:45)
[2021-06-02] MEDS: MIDAZOLAM DRIP 50 mg/50mL 50 ML IV SCH (11:53)
[2021-06-02] MEDS ORDERED: PIPERACILLIN-TAZOB 3.375GM 100 ML IV ONE (12:45)
[2021-06-02] MEDS ORDERED: POTASSIUM CHL 10MEQ/50ML 50 ML IV SCH (13:30)
[2021-06-02] MEDS: NOREPINEPHRINE 8 MG/250ML KIT 250 ML IV SCH (14:39)
[2021-06-02] MEDS: INSULIN LANTUS (GLARGINE) 1 /0.01ml (100units/ml) SC SCH (22:00)
[2021-06-02] MEDS ORDERED: VANCOMYCIN 1GM/250ML 250 ML IV SCH (23:00)
[2021-06-03] VITALS (107 sets, daily range): BP systolic 75–132; BP diastolic 50–95
[2021-06-03] MEDS: IPRATROPIUM BROM 0.5 MG/2.5ML INH SOL NEB SCH ×6 (02:16→22:11)
[2021-06-03] MEDS: PROPOFOL 100 ML IV SCH ×5 (02:41→22:46)
[2021-06-03 05:18] LABS: Albumin 1.4 g/dL (3.4-5.0); Calcium 7.6 mg/dL (8.5-10.1); Magnesium 2.1 mg/dL (1.6-2.6); Potassium 3.5 mmol/L (3.5-5.1)
[2021-06-03 05:21] LABS: BUN/Creatinine Ratio 44.4
[2021-06-03 05:27] LABS: Bilirubin, Total 0.4 mg/dL (0.2-1.0); Total Protein 5.2 g/dL (6.4-8.2)
[2021-06-03] MEDS: PIPERACILLIN-TAZOB 3.375GM 100 ML IV SCH ×3 (05:45→18:50)
[2021-06-03] MEDS: ACCU-CHEK COMFORT CURVE STRIP VI SCH ×4 (05:45→23:18)
[2021-06-03] MEDS: Glucerna 1.2 Cal 1Liter BOTTLE GT SCH (05:46)
[2021-06-03] MEDS: InsuLIN REG 1unit/0.01ml Soln (100units/ml) SC SCH ×4 (05:46→23:18)
[2021-06-03] MEDS: CHOLECALCIFEROL (VITD3) 2,000 UNIT CAP/TAB PO SCH (09:02)
[2021-06-03] MEDS: ASCORBIC ACID 1,000 MG TAB PO SCH (09:02)
[2021-06-03] MEDS: ZINC SULFATE 220mg CAP or TAB PO SCH (09:02)
[2021-06-03] MEDS: QUEtiapine FUMARATE 25 MG TAB PO SCH ×2 (09:02→22:00)
[2021-06-03] MEDS: FUROSEMIDE 40 MG/4 ML VIAL IV SCH (09:25)
[2021-06-03] MEDS: DexAMETHasone SOD PHOS 10MG/1ML VIAL INJ IV SCH ×2 (09:25→22:00)
[2021-06-03] MEDS: ENOXAPARIN SOD 40 MG/0.4 ML SYRINGE SC SCH (09:26)
[2021-06-03] MEDS: MIDAZOLAM DRIP 50 mg/50mL 50 ML IV SCH (12:15)
[2021-06-03] MEDS: VANCOMYCIN 1GM/250ML 250 ML IV SCH ×2 (12:58→20:00)
[2021-06-03] MEDS: NOREPINEPHRINE 8 MG/250ML KIT 250 ML IV SCH (14:45)
[2021-06-03] MEDS: INSULIN LANTUS (GLARGINE) 1 /0.01ml (100units/ml) SC SCH (22:00)
[2021-06-03] MEDS: fentaNYL Drip 2500mCg/250mlNS 250 ML IV SCH (22:30)
[2021-06-04] VITALS (97 sets, daily range): BP systolic 15–127; BP diastolic 40–80
[2021-06-04] MEDS: IPRATROPIUM BROM 0.5 MG/2.5ML INH SOL NEB SCH ×5 (02:17→22:08)
[2021-06-04] MEDS: VANCOMYCIN 1GM/250ML 250 ML IV SCH ×2 (04:00→11:56)
[2021-06-04] MEDS ORDERED: VANCOMYCIN 1GM/250ML 250 ML IV SCH (05:00)
[2021-06-04] MEDS: PIPERACILLIN-TAZOB 3.375GM 100 ML IV SCH ×5 (05:11→23:13)
[2021-06-04] MEDS: ACCU-CHEK COMFORT CURVE STRIP VI SCH ×4 (05:27→23:13)
[2021-06-04] MEDS: InsuLIN REG 1unit/0.01ml Soln (100units/ml) SC SCH ×4 (05:27→23:13)
[2021-06-04] MEDS: DexAMETHasone SOD PHOS 10MG/1ML VIAL INJ IV SCH ×2 (09:15→22:00)
[2021-06-04] MEDS: ASCORBIC ACID 1,000 MG TAB PO SCH (09:15)
[2021-06-04] MEDS: ZINC SULFATE 220mg CAP or TAB PO SCH (09:15)
[2021-06-04] MEDS: QUEtiapine FUMARATE 25 MG TAB PO SCH ×2 (09:15→22:00)
[2021-06-04] MEDS: FUROSEMIDE 40 MG/4 ML VIAL IV SCH (09:15)
[2021-06-04] MEDS: CHOLECALCIFEROL (VITD3) 2,000 UNIT CAP/TAB PO SCH (09:16)
[2021-06-04] MEDS: ENOXAPARIN SOD 40 MG/0.4 ML SYRINGE SC SCH (09:16)
[2021-06-04] MEDS: MIDAZOLAM DRIP 50 mg/50mL 50 ML IV SCH (12:15)
[2021-06-04] MEDS: NOREPINEPHRINE 8 MG/250ML KIT 250 ML IV SCH (14:45)
[2021-06-04] MEDS: PROPOFOL 100 ML IV SCH (19:43)
[2021-06-04] MEDS: INSULIN LANTUS (GLARGINE) 1 /0.01ml (100units/ml) SC SCH (22:00)
[2021-06-05] VITALS (97 sets, daily range): BP systolic 71–130; BP diastolic 43–85
[2021-06-05] MEDS: NOREPINEPHRINE 8 MG/250ML KIT 250 ML IV SCH (02:00)
[2021-06-05] MEDS: IPRATROPIUM BROM 0.5 MG/2.5ML INH SOL NEB SCH ×6 (02:12→22:06)
[2021-06-05] MEDS: PROPOFOL 100 ML IV SCH (03:37)
[2021-06-05] MEDS: VANCOMYCIN 1GM/250ML 250 ML IV SCH ×2 (04:17→17:16)
[2021-06-05 05:04] LABS: Basophils # (auto) 0 10 ^3/uL (0-0.2); Basophils % (auto) 0.2 % (0.0-2.0); Eosinophils # (auto) 0.3 10 ^3/uL (0-0.8); Eosinophils % (auto) 1.3 % (0.0-7.0); Hematocrit 29.8 % (41.0-53.0); Lymphocytes # (auto) 1.2 10 ^3/uL (0.4-5.4); Lymphocytes % (auto) 6.4 % (10.0-50.0); Mean Corpuscular Hemoglobin 28.9 pg (28.0-32.0); Mean Corpuscular Hgb Conc. 33.5 g/dL (32.0-36.0); Mean Corpuscular Volume 86.1 fL (80.0-100.0); Monocytes # (auto) 0.5 10 ^3/uL (0-1.3); Monocytes % (auto) 2.8 % (0.0-12.0); Neutrophils # (auto) 16.7 10 ^3/uL (1.6-8.6); Neutrophils % (auto) 89.3 % (37.0-80.0); Nucleated Red Blood Cells % 0.1 %; Red Blood Cells 3.46 10^6/uL (4.5-5.90); Red Cell Distribution Width 16.1 % (11.8-14.3); White Blood Cell 18.7 10^3/uL (4.4-10.8)
[2021-06-05] MEDS: InsuLIN REG 1unit/0.01ml Soln (100units/ml) SC SCH ×3 (06:00→17:20)
[2021-06-05] MEDS: ACCU-CHEK COMFORT CURVE STRIP VI SCH ×3 (06:00→17:20)
[2021-06-05] MEDS: PIPERACILLIN-TAZOB 3.375GM 100 ML IV SCH ×3 (06:00→18:00)
[2021-06-05 06:20] LABS: Albumin 1.6 g/dL (3.4-5.0); BUN/Creatinine Ratio 42.4; Calcium 7.7 mg/dL (8.5-10.1)
[2021-06-05 06:23] LABS: Bilirubin, Total 0.5 mg/dL (0.2-1.0); Total Protein 5.2 g/dL (6.4-8.2)
[2021-06-05 06:43] LABS: CRP High Sensitivity 1.65 mg/dL (< 0.3)
[2021-06-05 06:47] LABS: Potassium 2.6 mmol/L (3.5-5.1)
[2021-06-05] MEDS: POTASSIUM CHL 10MEQ/50ML 50 ML IV SCH ×4 (09:21→13:21)
[2021-06-05] MEDS: DexAMETHasone SOD PHOS 10MG/1ML VIAL INJ IV SCH ×2 (09:21→22:22)
[2021-06-05] MEDS: FUROSEMIDE 40 MG/4 ML VIAL IV SCH (09:22)
[2021-06-05] MEDS: QUEtiapine FUMARATE 25 MG TAB PO SCH ×2 (09:22→22:32)
[2021-06-05] MEDS: ZINC SULFATE 220mg CAP or TAB PO SCH (09:22)
[2021-06-05] MEDS: ASCORBIC ACID 1,000 MG TAB PO SCH (09:22)
[2021-06-05] MEDS: CHOLECALCIFEROL (VITD3) 2,000 UNIT CAP/TAB PO SCH (09:22)
[2021-06-05] MEDS: MIDAZOLAM DRIP 50 mg/50mL 50 ML IV SCH (12:15)
[2021-06-05] MEDS: fentaNYL Drip 2500mCg/250mlNS 250 ML IV SCH (13:55)
[2021-06-05] MEDS: INSULIN LANTUS (GLARGINE) 1 /0.01ml (100units/ml) SC SCH (22:00)
[2021-06-06] VITALS (96 sets, daily range): BP systolic 11–150; BP diastolic 53–90
[2021-06-06] MEDS: ACCU-CHEK COMFORT CURVE STRIP VI SCH ×4 (00:04→18:00)
[2021-06-06] MEDS: PIPERACILLIN-TAZOB 3.375GM 100 ML IV SCH ×4 (00:08→18:47)
[2021-06-06] MEDS: IPRATROPIUM BROM 0.5 MG/2.5ML INH SOL NEB SCH ×6 (02:18→22:15)
[2021-06-06 05:12] LABS: Basophils # (auto) 0 10 ^3/uL (0-0.2); Basophils % (auto) 0.1 % (0.0-2.0); Eosinophils # (auto) 0 10 ^3/uL (0-0.8); Eosinophils % (auto) 0.3 % (0.0-7.0); Hematocrit 29.7 % (41.0-53.0); Hemoglobin 10.3 g/dL (13.5-17.5); Lymphocytes # (auto) 0.3 10 ^3/uL (0.4-5.4); Lymphocytes % (auto) 1.7 % (10.0-50.0); Mean Corpuscular Hemoglobin 29.7 pg (28.0-32.0); Mean Corpuscular Hgb Conc. 34.6 g/dL (32.0-36.0); Mean Corpuscular Volume 85.7 fL (80.0-100.0); Monocytes # (auto) 0.2 10 ^3/uL (0-1.3); Monocytes % (auto) 1.4 % (0.0-12.0); Neutrophils # (auto) 15.6 10 ^3/uL (1.6-8.6); Neutrophils % (auto) 96.5 % (37.0-80.0); Red Blood Cells 3.46 10^6/uL (4.5-5.90); Red Cell Distribution Width 16.5 % (11.8-14.3); White Blood Cell 16.1 10^3/uL (4.4-10.8)
[2021-06-06 05:30] LABS: Potassium 3.2 mmol/L (3.5-5.1)
[2021-06-06 05:39] LABS: Calcium 7.7 mg/dL (8.5-10.1)
[2021-06-06] MEDS: InsuLIN REG 1unit/0.01ml Soln (100units/ml) SC SCH ×4 (07:00→18:00)
[2021-06-06] MEDS: fentaNYL Drip 2500mCg/250mlNS 250 ML IV SCH (07:43)
[2021-06-06] MEDS: DexAMETHasone SOD PHOS 10MG/1ML VIAL INJ IV SCH ×2 (09:23→22:22)
[2021-06-06] MEDS: FUROSEMIDE 40 MG/4 ML VIAL IV SCH (09:23)
[2021-06-06] MEDS: VANCOMYCIN 1GM/250ML 250 ML IV SCH ×2 (09:23→22:45)
[2021-06-06] MEDS: QUEtiapine FUMARATE 25 MG TAB PO SCH ×2 (09:24→22:22)
[2021-06-06] MEDS ORDERED: POTASSIUM CHL 10MEQ/50ML 50 ML IV PRN (10:30)
[2021-06-06] MEDS: POTASSIUM CHL 10MEQ/50ML 50 ML IV SCH ×6 (11:53→17:23)
[2021-06-06] MEDS: PROPOFOL 100 ML IV SCH (12:15)
[2021-06-06] MEDS: MIDAZOLAM DRIP 50 mg/50mL 50 ML IV SCH (12:15)
[2021-06-06] MEDS: NOREPINEPHRINE 8 MG/250ML KIT 250 ML IV SCH (18:33)
[2021-06-06] MEDS: INSULIN LANTUS (GLARGINE) 1 /0.01ml (100units/ml) SC SCH (22:00)
[2021-06-07] VITALS (98 sets, daily range): BP systolic 78–137; BP diastolic 45–114
[2021-06-07] MEDS: InsuLIN REG 1unit/0.01ml Soln (100units/ml) SC SCH ×5 (00:40→23:14)
[2021-06-07] MEDS: IPRATROPIUM BROM 0.5 MG/2.5ML INH SOL NEB SCH ×6 (02:15→21:22)
[2021-06-07 06:02] LABS: BUN/Creatinine Ratio 47.8; Calcium 7.9 mg/dL (8.5-10.1); Potassium 3.7 mmol/L (3.5-5.1)
[2021-06-07] MEDS: PIPERACILLIN-TAZOB 3.375GM 100 ML IV SCH ×5 (06:23→23:13)
[2021-06-07] MEDS: ACCU-CHEK COMFORT CURVE STRIP VI SCH ×5 (06:25→23:14)
[2021-06-07] MEDS: VANCOMYCIN 1GM/250ML 250 ML IV SCH ×2 (10:25→18:00)
[2021-06-07] MEDS: DexAMETHasone SOD PHOS 10MG/1ML VIAL INJ IV SCH ×2 (10:25→21:21)
[2021-06-07] MEDS: FUROSEMIDE 40 MG/4 ML VIAL IV SCH (10:26)
[2021-06-07] MEDS: QUEtiapine FUMARATE 25 MG TAB PO SCH ×2 (10:26→21:21)
[2021-06-07] MEDS: MIDAZOLAM DRIP 50 mg/50mL 50 ML IV SCH (12:15)
[2021-06-07] MEDS: PROPOFOL 100 ML IV SCH (12:15)
[2021-06-07] MEDS: fentaNYL Drip 2500mCg/250mlNS 250 ML IV SCH (12:45)
[2021-06-07] MEDS ORDERED: FUROSEMIDE 20 MG/2 ML VIAL IV ONE (14:45)
[2021-06-07] MEDS: LORazepam 2MG/ML-1ML VIAL IV PRN (20:47)
[2021-06-07] MEDS: ACETYLCYSTEINE 10 %(100MG/ML) SOL 4ML NEB SCH (21:22)
[2021-06-07] MEDS ORDERED: FUROSEMIDE 40 MG/4 ML VIAL IV ONE (21:45)
[2021-06-07] MEDS: INSULIN LANTUS (GLARGINE) 1 /0.01ml (100units/ml) SC SCH (22:00)
[2021-06-07] MEDS ORDERED: ACETAMINOPHEN 650 MG RECT SUPP PR PRN (23:30)
[2021-06-08] VITALS (88 sets, daily range): BP systolic 50–165; BP diastolic 30–140
[2021-06-08] MEDS: VANCOMYCIN 1GM/250ML 250 ML IV SCH ×3 (01:10→17:17)
[2021-06-08] MEDS: ACETYLCYSTEINE 10 %(100MG/ML) SOL 4ML NEB SCH ×6 (02:42→22:35)
[2021-06-08] MEDS: ALBUTEROL SULF 2.5 MG/0.5ML(0.5%) NEB SOLN NEB PRN ×6 (02:43→22:35)
[2021-06-08] MEDS: IPRATROPIUM BROM 0.5 MG/2.5ML INH SOL NEB SCH ×4 (02:43→13:28)
[2021-06-08 05:43] LABS: BUN/Creatinine Ratio 30.2; Calcium 7.4 mg/dL (8.5-10.1)
[2021-06-08] MEDS: ACCU-CHEK COMFORT CURVE STRIP VI SCH ×4 (05:43→23:11)
[2021-06-08] MEDS: InsuLIN REG 1unit/0.01ml Soln (100units/ml) SC SCH ×4 (05:45→23:11)
[2021-06-08] MEDS: PIPERACILLIN-TAZOB 3.375GM 100 ML IV SCH ×4 (06:00→23:10)
[2021-06-08] MEDS: NOREPINEPHRINE 8 MG/250ML KIT 250 ML IV SCH ×2 (07:59→17:20)
[2021-06-08] MEDS: FUROSEMIDE 40 MG/4 ML VIAL IV SCH (09:23)
[2021-06-08] MEDS: DexAMETHasone SOD PHOS 10MG/1ML VIAL INJ IV SCH ×2 (09:23→21:48)
[2021-06-08] MEDS: POTASSIUM CHL 10MEQ/50ML 50 ML IV SCH ×6 (09:24→15:10)
[2021-06-08] MEDS: QUEtiapine FUMARATE 25 MG TAB PO SCH ×2 (09:24→21:48)
[2021-06-08] MEDS: PROPOFOL 100 ML IV SCH (11:48)
[2021-06-08] MEDS: MIDAZOLAM DRIP 50 mg/50mL 50 ML IV SCH (11:49)
[2021-06-08] MEDS: fentaNYL Drip 2500mCg/250mlNS 250 ML IV SCH (11:50)
[2021-06-08] MEDS: LORazepam 2MG/ML-1ML VIAL IV PRN (13:10)
[2021-06-08] MEDS: INSULIN LANTUS (GLARGINE) 1 /0.01ml (100units/ml) SC SCH (22:00)
[2021-06-09] VITALS (93 sets, daily range): BP systolic 81–145; BP diastolic 28–91
[2021-06-09] MEDS: VANCOMYCIN 1GM/250ML 250 ML IV SCH ×3 (02:00→18:16)
[2021-06-09] MEDS: ALBUTEROL SULF 2.5 MG/0.5ML(0.5%) NEB SOLN NEB PRN ×2 (02:23→07:31)
[2021-06-09] MEDS: ACETYLCYSTEINE 10 %(100MG/ML) SOL 4ML NEB SCH ×5 (02:23→18:00)
[2021-06-09 05:34] LABS: Basophils # (auto) 0.1 10 ^3/uL (0-0.2); Basophils % (auto) 0.3 % (0.0-2.0); Eosinophils # (auto) 0 10 ^3/uL (0-0.8); Hemoglobin 10.2 g/dL (13.5-17.5); Lymphocytes # (auto) 0.4 10 ^3/uL (0.4-5.4); Lymphocytes % (auto) 1.7 % (10.0-50.0); Mean Corpuscular Hemoglobin 29.8 pg (28.0-32.0); Mean Corpuscular Hgb Conc. 34.1 g/dL (32.0-36.0); Mean Corpuscular Volume 87.6 fL (80.0-100.0); Monocytes # (auto) 0.2 10 ^3/uL (0-1.3); Neutrophils # (auto) 20.3 10 ^3/uL (1.6-8.6); Red Blood Cells 3.42 10^6/uL (4.5-5.90); Red Cell Distribution Width 16.3 % (11.8-14.3); White Blood Cell 20.9 10^3/uL (4.4-10.8)
[2021-06-09] MEDS: InsuLIN REG 1unit/0.01ml Soln (100units/ml) SC SCH ×3 (06:00→18:00)
[2021-06-09] MEDS: PIPERACILLIN-TAZOB 3.375GM 100 ML IV SCH ×3 (06:00→19:19)
[2021-06-09] MEDS: ACCU-CHEK COMFORT CURVE STRIP VI SCH ×4 (06:00→23:23)
[2021-06-09 06:02] LABS: BUN/Creatinine Ratio 30.2; Magnesium 2.2 mg/dL (1.6-2.6); Phosphorus 2.1 mg/dL (2.5-4.90)
[2021-06-09 06:08] LABS: Potassium 2.8 mmol/L (3.5-5.1)
[2021-06-09] MEDS: POTASSIUM CHL 10MEQ/50ML 50 ML IV SCH ×9 (07:00→23:00)
[2021-06-09] MEDS: DexAMETHasone SOD PHOS 4 MG/1ML SDV INJ IV SCH ×2 (10:00→21:06)
[2021-06-09] MEDS: QUEtiapine FUMARATE 25 MG TAB PO SCH ×2 (10:00→21:07)
[2021-06-09] MEDS: FUROSEMIDE 40 MG/4 ML VIAL IV SCH (10:00)
[2021-06-09] MEDS ORDERED: ETOMIDATE (2MG/ML) 20ML VIAL IV ONE (10:23)
[2021-06-09] MEDS ORDERED: ROCURONIUM 10MG/ML 10ML VIAL IV ONE (10:24)
[2021-06-09] MEDS: fentaNYL Drip 2500mCg/250mlNS 250 ML IV SCH (11:10)
[2021-06-09] MEDS ORDERED: EPINEPHrine HCL 1 MG/1 ML AMP ONE (11:41)
[2021-06-09] MEDS ORDERED: LIDOCAINE 2%HCL (LOCAL ANESTH.) INJ 20ML MDV ONE (11:41)
[2021-06-09] MEDS ORDERED: GLYCOPYRROLATE 0.2 MG/ML 1ML VIAL ONE (11:42)
[2021-06-09] MEDS ORDERED: LIDOCAINE HCL 2% TOP JELLY 5ML TOP ONE (11:42)
[2021-06-09] MEDS ORDERED: MIDAZOLAM HCL 5 MG/ML-1ML VIAL ONE (11:43)
[2021-06-09] MEDS ORDERED: diphenhdrAMINE HCL 50 MG/1 ML VL ONE (11:43)
[2021-06-09] MEDS ORDERED: fentaNYL CITRATE 100 MCG/2 ML VL ONE (11:43)
[2021-06-09] MEDS: PROPOFOL 100 ML IV SCH ×3 (12:15→20:43)
[2021-06-09 13:15] LABS: INR 1.34 (0.9-1.15)
[2021-06-09] MEDS: NOREPINEPHRINE 8 MG/250ML KIT 250 ML IV SCH ×2 (14:45→21:15)
[2021-06-09] MEDS ORDERED: POTASSIUM CHL 10MEQ/50ML 50 ML IV ONE (16:27)
[2021-06-09] MEDS ORDERED: LIDOCAINE 1% (LOCAL ANESTH.) PF 5ml SDV ID ONE (18:15)
[2021-06-09] MEDS: Glucerna 1.2 Cal 1Liter BOTTLE GT SCH (20:43)
[2021-06-09] MEDS ORDERED: POTASSIUM CHL 20 Meq TABLET PO ONE (21:00)
[2021-06-09] MEDS: SODIUM CHLOR 0.9% PF (SALINE LOCK) 10ML VIAL/SYR IV SCH (21:07)
[2021-06-09] MEDS: INSULIN LANTUS (GLARGINE) 1 /0.01ml (100units/ml) SC SCH (22:00)
[2021-06-10] VITALS (59 sets, daily range): BP systolic 81–157; BP diastolic -39–109
[2021-06-10] MEDS: POTASSIUM CHL 10MEQ/50ML 50 ML IV SCH
[2021-06-10] MEDS: PIPERACILLIN-TAZOB 3.375GM 100 ML IV SCH ×4 (00:06→17:24)
[2021-06-10] MEDS: VANCOMYCIN 1GM/250ML 250 ML IV SCH ×3 (01:55→17:23)
[2021-06-10] MEDS: fentaNYL Drip 2500mCg/250mlNS 250 ML IV SCH ×2 (01:55→19:10)
[2021-06-10] MEDS: ACETYLCYSTEINE 10 %(100MG/ML) SOL 4ML NEB SCH ×6 (02:35→21:14)
[2021-06-10 04:47] LABS: Basophils # (auto) 0 10 ^3/uL (0-0.2); Basophils % (auto) 0.1 % (0.0-2.0); Eosinophils # (auto) 0 10 ^3/uL (0-0.8); Eosinophils % (auto) 0.1 % (0.0-7.0); Hematocrit 29.1 % (41.0-53.0); Hemoglobin 9.9 g/dL (13.5-17.5); Lymphocytes # (auto) 0.5 10 ^3/uL (0.4-5.4); Lymphocytes % (auto) 2.3 % (10.0-50.0); Mean Corpuscular Hemoglobin 29.7 pg (28.0-32.0); Mean Corpuscular Hgb Conc. 34.1 g/dL (32.0-36.0); Monocytes # (auto) 0.2 10 ^3/uL (0-1.3); Neutrophils # (auto) 22.6 10 ^3/uL (1.6-8.6); Neutrophils % (auto) 96.5 % (37.0-80.0); Nucleated Red Blood Cells % 0.1 %; Red Blood Cells 3.34 10^6/uL (4.5-5.90); Red Cell Distribution Width 16.3 % (11.8-14.3); White Blood Cell 23.4 10^3/uL (4.4-10.8)
[2021-06-10] MEDS: PROPOFOL 100 ML IV SCH ×3 (05:13→16:31)
[2021-06-10] MEDS: ACCU-CHEK COMFORT CURVE STRIP VI SCH ×3 (05:15→17:24)
[2021-06-10] MEDS: InsuLIN REG 1unit/0.01ml Soln (100units/ml) SC SCH ×4 (05:16→18:00)
[2021-06-10 05:17] LABS: Albumin 1.5 g/dL (3.4-5.0); Calcium 7.4 mg/dL (8.5-10.1); Potassium 3.4 mmol/L (3.5-5.1)
[2021-06-10 05:21] LABS: BUN/Creatinine Ratio 29.5; Bilirubin, Total 0.8 mg/dL (0.2-1.0); Total Protein 5.5 g/dL (6.4-8.2)
[2021-06-10] MEDS: ALBUTEROL SULF 2.5 MG/0.5ML(0.5%) NEB SOLN NEB PRN ×4 (06:19→21:14)
[2021-06-10] MEDS: DexAMETHasone SOD PHOS 4 MG/1ML SDV INJ IV SCH ×2 (10:13→21:24)
[2021-06-10] MEDS: SODIUM CHLOR 0.9% PF (SALINE LOCK) 10ML VIAL/SYR IV SCH ×2 (10:14→21:25)
[2021-06-10] MEDS: QUEtiapine FUMARATE 25 MG TAB PO SCH ×2 (10:14→21:25)
[2021-06-10] MEDS: FUROSEMIDE 40 MG/4 ML VIAL IV SCH (10:14)
[2021-06-10] MEDS: NOREPINEPHRINE 8 MG/250ML KIT 250 ML IV SCH (16:31)
[2021-06-10] MEDS ORDERED: NOREPINEPHRINE BITARTRATE 1 ML IV ONE (21:43)
[2021-06-10] MEDS: INSULIN LANTUS (GLARGINE) 1 /0.01ml (100units/ml) SC SCH (22:00)
[2021-06-11] VITALS (107 sets, daily range): BP systolic 69–145; BP diastolic 46–75
[2021-06-11] MEDS: PROPOFOL 100 ML IV SCH ×4 (00:50→17:18)
[2021-06-11] MEDS: ACETYLCYSTEINE 10 %(100MG/ML) SOL 4ML NEB SCH ×6 (01:47→22:09)
[2021-06-11] MEDS: ALBUTEROL SULF 2.5 MG/0.5ML(0.5%) NEB SOLN NEB PRN ×6 (01:47→22:09)
[2021-06-11] MEDS: VANCOMYCIN 1GM/250ML 250 ML IV SCH (02:00)
[2021-06-11] MEDS: NOREPINEPHRINE 8 MG/250ML KIT 250 ML IV SCH ×3 (04:00→23:00)
[2021-06-11 04:47] LABS: Basophils # (auto) 0 10 ^3/uL (0-0.2); Basophils % (auto) 0.2 % (0.0-2.0); Eosinophils # (auto) 0 10 ^3/uL (0-0.8); Hematocrit 28.2 % (41.0-53.0); Hemoglobin 9.5 g/dL (13.5-17.5); Lymphocytes # (auto) 0.3 10 ^3/uL (0.4-5.4); Lymphocytes % (auto) 1.2 % (10.0-50.0); Mean Corpuscular Hemoglobin 29.6 pg (28.0-32.0); Mean Corpuscular Hgb Conc. 33.6 g/dL (32.0-36.0); Mean Corpuscular Volume 88.2 fL (80.0-100.0); Monocytes # (auto) 0.1 10 ^3/uL (0-1.3); Monocytes % (auto) 0.3 % (0.0-12.0); Neutrophils # (auto) 20.3 10 ^3/uL (1.6-8.6); Neutrophils % (auto) 98.3 % (37.0-80.0); Nucleated Red Blood Cells % 0.2 %; Red Cell Distribution Width 16.9 % (11.8-14.3); White Blood Cell 20.7 10^3/uL (4.4-10.8)
[2021-06-11 05:05] LABS: INR 1.11 (0.9-1.15); Partial Thromboplastin Time 31.9 sec (23.6-33.0)
[2021-06-11 05:15] LABS: Albumin 1.4 g/dL (3.4-5.0); BUN/Creatinine Ratio 32.6; Calcium 7.8 mg/dL (8.5-10.1); Potassium 3.5 mmol/L (3.5-5.1)
[2021-06-11 05:18] LABS: Bilirubin, Total 0.6 mg/dL (0.2-1.0); Total Protein 5.1 g/dL (6.4-8.2)
[2021-06-11] MEDS: ACCU-CHEK COMFORT CURVE STRIP VI SCH ×5 (06:00→23:49)
[2021-06-11] MEDS: PIPERACILLIN-TAZOB 3.375GM 100 ML IV SCH ×5 (06:00→23:47)
[2021-06-11] MEDS: InsuLIN REG 1unit/0.01ml Soln (100units/ml) SC SCH ×5 (06:00→23:50)
[2021-06-11] MEDS: SODIUM CHLOR 0.9% PF (SALINE LOCK) 10ML VIAL/SYR IV SCH ×2 (10:02→22:00)
[2021-06-11] MEDS: QUEtiapine FUMARATE 25 MG TAB PO SCH ×2 (10:02→22:00)
[2021-06-11] MEDS: DexAMETHasone SOD PHOS 4 MG/1ML SDV INJ IV SCH ×2 (10:02→22:00)
[2021-06-11] MEDS: FUROSEMIDE 40 MG/4 ML VIAL IV SCH (10:02)
[2021-06-11] MEDS: fentaNYL Drip 2500mCg/250mlNS 250 ML IV SCH (10:22)
[2021-06-11] MEDS: INSULIN LANTUS (GLARGINE) 1 /0.01ml (100units/ml) SC SCH (22:00)
[2021-06-12] VITALS (88 sets, daily range): BP systolic 80–157; BP diastolic 42–110
[2021-06-12] MEDS: fentaNYL Drip 2500mCg/250mlNS 250 ML IV SCH (01:14)
[2021-06-12] MEDS: PROPOFOL 100 ML IV SCH ×4 (01:18→15:12)
[2021-06-12] MEDS: ACETYLCYSTEINE 10 %(100MG/ML) SOL 4ML NEB SCH ×6 (02:00→22:19)
[2021-06-12] MEDS ORDERED: VANCOMYCIN 1GM/250ML 250 ML IV SCH (05:00)
[2021-06-12] MEDS: ALBUTEROL SULF 2.5 MG/0.5ML(0.5%) NEB SOLN NEB PRN ×4 (05:57→22:19)
[2021-06-12] MEDS: ACCU-CHEK COMFORT CURVE STRIP VI SCH ×4 (06:25→23:00)
[2021-06-12] MEDS: InsuLIN REG 1unit/0.01ml Soln (100units/ml) SC SCH ×4 (06:27→23:28)
[2021-06-12] MEDS: PIPERACILLIN-TAZOB 3.375GM 100 ML IV SCH ×4 (06:28→23:26)
[2021-06-12] MEDS: VANCOMYCIN 1GM/250ML 250 ML IV SCH (06:45)
[2021-06-12] MEDS: FUROSEMIDE 40 MG/4 ML VIAL IV SCH (10:00)
[2021-06-12] MEDS: SODIUM CHLOR 0.9% PF (SALINE LOCK) 10ML VIAL/SYR IV SCH ×2 (11:03→22:06)
[2021-06-12] MEDS: QUEtiapine FUMARATE 25 MG TAB PO SCH ×2 (11:03→22:06)
[2021-06-12] MEDS: DexAMETHasone SOD PHOS 4 MG/1ML SDV INJ IV SCH ×2 (11:03→22:06)
[2021-06-12] MEDS: NOREPINEPHRINE 8 MG/250ML KIT 250 ML IV SCH (18:23)
[2021-06-12] MEDS: INSULIN LANTUS (GLARGINE) 1 /0.01ml (100units/ml) SC SCH (22:00)
[2021-06-13] VITALS (103 sets, daily range): BP systolic 78–149; BP diastolic 44–96
[2021-06-13] MEDS: ACETYLCYSTEINE 10 %(100MG/ML) SOL 4ML NEB SCH ×6 (02:08→22:10)
[2021-06-13] MEDS: ALBUTEROL SULF 2.5 MG/0.5ML(0.5%) NEB SOLN NEB PRN ×5 (02:09→22:45)
[2021-06-13 04:20] LABS: Basophils # (auto) 0 10 ^3/uL (0-0.2); Basophils % (auto) 0.2 % (0.0-2.0); Eosinophils # (auto) 0 10 ^3/uL (0-0.8); Eosinophils % (auto) 0.4 % (0.0-7.0); Hematocrit 28.1 % (41.0-53.0); Hemoglobin 9.4 g/dL (13.5-17.5); Lymphocytes # (auto) 0.3 10 ^3/uL (0.4-5.4); Lymphocytes % (auto) 2.4 % (10.0-50.0); Mean Corpuscular Hemoglobin 29.4 pg (28.0-32.0); Mean Corpuscular Hgb Conc. 33.4 g/dL (32.0-36.0); Mean Corpuscular Volume 88.1 fL (80.0-100.0); Monocytes # (auto) 0.2 10 ^3/uL (0-1.3); Neutrophils # (auto) 11.2 10 ^3/uL (1.6-8.6); Nucleated Red Blood Cells % 0.3 %; Red Blood Cells 3.19 10^6/uL (4.5-5.90); Red Cell Distribution Width 16.9 % (11.8-14.3); White Blood Cell 11.8 10^3/uL (4.4-10.8)
[2021-06-13 04:22] LABS: Calcium 7.7 mg/dL (8.5-10.1); Potassium 3.3 mmol/L (3.5-5.1)
[2021-06-13] MEDS: InsuLIN REG 1unit/0.01ml Soln (100units/ml) SC SCH ×3 (06:00→18:00)
[2021-06-13] MEDS: NOREPINEPHRINE 8 MG/250ML KIT 250 ML IV SCH (06:00)
[2021-06-13] MEDS: ACCU-CHEK COMFORT CURVE STRIP VI SCH ×3 (06:00→18:21)
[2021-06-13] MEDS: PROPOFOL 100 ML IV SCH ×2 (06:09→15:03)
[2021-06-13] MEDS: PIPERACILLIN-TAZOB 3.375GM 100 ML IV SCH ×4 (06:10→20:31)
[2021-06-13] MEDS: VANCOMYCIN 1GM/250ML 250 ML IV SCH (06:40)
[2021-06-13] MEDS: POTASSIUM CHL 10MEQ/50ML 50 ML IV SCH ×2 (09:48→10:43)
[2021-06-13] MEDS: DexAMETHasone SOD PHOS 4 MG/1ML SDV INJ IV SCH ×2 (09:48→22:00)
[2021-06-13] MEDS: SODIUM CHLOR 0.9% PF (SALINE LOCK) 10ML VIAL/SYR IV SCH ×2 (09:49→22:00)
[2021-06-13] MEDS: QUEtiapine FUMARATE 25 MG TAB PO SCH ×2 (09:49→22:00)
[2021-06-13] MEDS: FUROSEMIDE 40 MG/4 ML VIAL IV SCH (09:49)
[2021-06-13] MEDS: fentaNYL Drip 2500mCg/250mlNS 250 ML IV SCH (15:02)
[2021-06-13] MEDS: INSULIN LANTUS (GLARGINE) 1 /0.01ml (100units/ml) SC SCH (22:00)
[2021-06-14] VITALS (78 sets, daily range): BP systolic 80–129; BP diastolic 46–75
[2021-06-14] MEDS: PROPOFOL 100 ML IV SCH ×2 (00:44→19:00)
[2021-06-14] MEDS: ACETYLCYSTEINE 10 %(100MG/ML) SOL 4ML NEB SCH ×6 (02:20→22:20)
[2021-06-14] MEDS: ALBUTEROL SULF 2.5 MG/0.5ML(0.5%) NEB SOLN NEB PRN ×5 (02:31→22:20)
[2021-06-14 05:35] LABS: Basophils # (auto) 0 10 ^3/uL (0-0.2); Basophils % (auto) 0.3 % (0.0-2.0); Eosinophils # (auto) 0.1 10 ^3/uL (0-0.8); Eosinophils % (auto) 1.6 % (0.0-7.0); Hematocrit 26.6 % (41.0-53.0); Hemoglobin 9.3 g/dL (13.5-17.5); Lymphocytes # (auto) 0.6 10 ^3/uL (0.4-5.4); Mean Corpuscular Hemoglobin 30.5 pg (28.0-32.0); Mean Corpuscular Hgb Conc. 34.8 g/dL (32.0-36.0); Mean Corpuscular Volume 87.7 fL (80.0-100.0); Monocytes # (auto) 0.2 10 ^3/uL (0-1.3); Monocytes % (auto) 2.2 % (0.0-12.0); Neutrophils # (auto) 6.2 10 ^3/uL (1.6-8.6); Neutrophils % (auto) 87.9 % (37.0-80.0); Nucleated Red Blood Cells % 0.2 %; Red Blood Cells 3.04 10^6/uL (4.5-5.90); Red Cell Distribution Width 16.8 % (11.8-14.3); White Blood Cell 7.1 10^3/uL (4.4-10.8)
[2021-06-14 05:53] LABS: BUN/Creatinine Ratio 37.1; Calcium 7.7 mg/dL (8.5-10.1); Magnesium 2.4 mg/dL (1.6-2.6); Phosphorus 3.1 mg/dL (2.5-4.90); Potassium 3.3 mmol/L (3.5-5.1)
[2021-06-14] MEDS: InsuLIN REG 1unit/0.01ml Soln (100units/ml) SC SCH ×5 (06:00→23:38)
[2021-06-14] MEDS: ACCU-CHEK COMFORT CURVE STRIP VI SCH ×5 (06:00→23:37)
[2021-06-14] MEDS: VANCOMYCIN 1GM/250ML 250 ML IV SCH (07:00)
[2021-06-14] MEDS: QUEtiapine FUMARATE 25 MG TAB PO SCH ×2 (10:00→21:55)
[2021-06-14] MEDS: SODIUM CHLOR 0.9% PF (SALINE LOCK) 10ML VIAL/SYR IV SCH ×2 (10:00→21:55)
[2021-06-14] MEDS: PIPERACILLIN-TAZOB 3.375GM 100 ML IV SCH ×4 (12:00→23:36)
[2021-06-14] MEDS: DexAMETHasone SOD PHOS 4 MG/1ML SDV INJ IV SCH ×2 (13:36→21:55)
[2021-06-14] MEDS: FUROSEMIDE 40 MG/4 ML VIAL IV SCH (13:37)
[2021-06-14] MEDS: fentaNYL Drip 2500mCg/250mlNS 250 ML IV SCH (16:53)
[2021-06-14] MEDS: INSULIN LANTUS (GLARGINE) 1 /0.01ml (100units/ml) SC SCH (22:00)
[2021-06-15] VITALS (100 sets, daily range): BP systolic 81–150; BP diastolic 43–72
[2021-06-15] MEDS: PIPERACILLIN-TAZOB 3.375GM 100 ML IV SCH ×4 (05:10→23:28)
[2021-06-15] MEDS: InsuLIN REG 1unit/0.01ml Soln (100units/ml) SC SCH ×4 (05:11→23:29)
[2021-06-15] MEDS: POTASSIUM CHL 10MEQ/50ML 50 ML IV SCH ×4 (06:00→21:30)
[2021-06-15] MEDS: ACCU-CHEK COMFORT CURVE STRIP VI SCH ×4 (06:00→23:29)
[2021-06-15 06:10] LABS: Calcium 7.9 mg/dL (8.5-10.1)
[2021-06-15] MEDS: ACETYLCYSTEINE 10 %(100MG/ML) SOL 4ML NEB SCH ×4 (06:28→18:22)
[2021-06-15] MEDS: NOREPINEPHRINE 8 MG/250ML KIT 250 ML IV SCH ×2 (07:00→08:00)
[2021-06-15] MEDS: ALBUTEROL SULF 2.5 MG/0.5ML(0.5%) NEB SOLN NEB PRN ×4 (07:21→18:23)
[2021-06-15] MEDS: VANCOMYCIN 1GM/250ML 250 ML IV SCH ×2 (08:15→17:15)
[2021-06-15] MEDS: DexAMETHasone SOD PHOS 4 MG/1ML SDV INJ IV SCH ×2 (09:21→21:06)
[2021-06-15] MEDS: QUEtiapine FUMARATE 25 MG TAB PO SCH ×2 (09:21→21:07)
[2021-06-15] MEDS: FUROSEMIDE 40 MG/4 ML VIAL IV SCH (09:21)
[2021-06-15] MEDS: SODIUM CHLOR 0.9% PF (SALINE LOCK) 10ML VIAL/SYR IV SCH ×2 (09:21→21:07)
[2021-06-15] MEDS: Pro-Stat SF 30ml Vanilla GT SCH ×2 (11:06→22:00)
[2021-06-15] MEDS: PROPOFOL 100 ML IV SCH ×2 (12:06→20:00)
[2021-06-15] MEDS ORDERED: POTASSIUM EFFERVESENT TAB 25 MEQ PO ONE (14:00)
[2021-06-15] MEDS ORDERED: POTASSIUM EFFERVESENT TAB 25 MEQ GT ONE (19:30)
[2021-06-15] MEDS: fentaNYL Drip 2500mCg/250mlNS 250 ML IV SCH (20:30)
[2021-06-15] MEDS: INSULIN LANTUS (GLARGINE) 1 /0.01ml (100units/ml) SC SCH (22:00)
[2021-06-16] VITALS (104 sets, daily range): BP systolic 29–140; BP diastolic -19–78
[2021-06-16 04:32] LABS: BUN/Creatinine Ratio 34.2; Calcium 7.6 mg/dL (8.5-10.1); Magnesium 2.1 mg/dL (1.6-2.6); Phosphorus 2.9 mg/dL (2.5-4.90); Potassium 3.6 mmol/L (3.5-5.1)
[2021-06-16 04:34] LABS: Basophils # (auto) 0.1 10 ^3/uL (0-0.2); Basophils % (auto) 0.6 % (0.0-2.0); Eosinophils # (auto) 0.1 10 ^3/uL (0-0.8); Eosinophils % (auto) 0.8 % (0.0-7.0); Hematocrit 26.9 % (41.0-53.0); Hemoglobin 9.2 g/dL (13.5-17.5); Lymphocytes # (auto) 0.6 10 ^3/uL (0.4-5.4); Lymphocytes % (auto) 5.6 % (10.0-50.0); Mean Corpuscular Hemoglobin 30.3 pg (28.0-32.0); Mean Corpuscular Hgb Conc. 34.2 g/dL (32.0-36.0); Mean Corpuscular Volume 88.8 fL (80.0-100.0); Monocytes # (auto) 0.3 10 ^3/uL (0-1.3); Monocytes % (auto) 2.7 % (0.0-12.0); Neutrophils # (auto) 9.7 10 ^3/uL (1.6-8.6); Neutrophils % (auto) 90.3 % (37.0-80.0); Nucleated Red Blood Cells % 0.1 %; Red Blood Cells 3.03 10^6/uL (4.5-5.90); Red Cell Distribution Width 16.8 % (11.8-14.3); White Blood Cell 10.8 10^3/uL (4.4-10.8)
[2021-06-16] MEDS: VANCOMYCIN 1GM/250ML 250 ML IV SCH ×2 (05:27→16:22)
[2021-06-16] MEDS: PIPERACILLIN-TAZOB 3.375GM 100 ML IV SCH ×3 (05:27→17:25)
[2021-06-16] MEDS: ACETYLCYSTEINE 10 %(100MG/ML) SOL 4ML NEB SCH ×4 (06:00→22:30)
[2021-06-16] MEDS: ACCU-CHEK COMFORT CURVE STRIP VI SCH ×3 (07:00→17:26)
[2021-06-16] MEDS: InsuLIN REG 1unit/0.01ml Soln (100units/ml) SC SCH ×3 (07:00→17:26)
[2021-06-16] MEDS: ALBUTEROL SULF 2.5 MG/0.5ML(0.5%) NEB SOLN NEB PRN ×4 (07:17→22:29)
[2021-06-16] MEDS: Pro-Stat SF 30ml Vanilla GT SCH ×2 (09:01→22:00)
[2021-06-16] MEDS: SODIUM CHLOR 0.9% PF (SALINE LOCK) 10ML VIAL/SYR IV SCH ×2 (09:06→22:00)
[2021-06-16] MEDS: FUROSEMIDE 40 MG/4 ML VIAL IV SCH (09:06)
[2021-06-16] MEDS: QUEtiapine FUMARATE 25 MG TAB PO SCH ×2 (09:06→22:00)
[2021-06-16] MEDS: DexAMETHasone SOD PHOS 4 MG/1ML SDV INJ IV SCH (09:07)
[2021-06-16] MEDS: PROPOFOL 100 ML IV SCH ×2 (09:52→16:22)
[2021-06-16] MEDS ORDERED: DEXTROSE (50%) 50ML SYRG IV ONE (11:15)
[2021-06-16] MEDS: fentaNYL Drip 2500mCg/250mlNS 250 ML IV SCH (16:23)
[2021-06-16] MEDS: NOREPINEPHRINE 8 MG/250ML KIT 250 ML IV SCH (18:03)
[2021-06-16] MEDS: INSULIN LANTUS (GLARGINE) 1 /0.01ml (100units/ml) SC SCH (22:00)
[2021-06-17] VITALS (111 sets, daily range): BP systolic 79–149; BP diastolic 50–78
[2021-06-17] MEDS: PIPERACILLIN-TAZOB 3.375GM 100 ML IV SCH ×4 (00:19→17:22)
[2021-06-17] MEDS: PROPOFOL 100 ML IV SCH ×4 (01:50→17:41)
[2021-06-17] MEDS: ALBUTEROL SULF 2.5 MG/0.5ML(0.5%) NEB SOLN NEB PRN ×6 (04:52→22:05)
[2021-06-17] MEDS: ACETYLCYSTEINE 10 %(100MG/ML) SOL 4ML NEB SCH ×6 (04:52→22:05)
[2021-06-17] MEDS: VANCOMYCIN 1GM/250ML 250 ML IV SCH (05:00)
[2021-06-17] MEDS: Glucerna 1.2 Cal 1Liter BOTTLE GT SCH (05:19)
[2021-06-17] MEDS: InsuLIN REG 1unit/0.01ml Soln (100units/ml) SC SCH ×4 (05:53→17:22)
[2021-06-17] MEDS: ACCU-CHEK COMFORT CURVE STRIP VI SCH ×4 (05:53→17:22)
[2021-06-17] MEDS: DexAMETHasone SOD PHOS 4 MG/1ML SDV INJ IV SCH (09:03)
[2021-06-17] MEDS: FUROSEMIDE 40 MG/4 ML VIAL IV SCH (09:03)
[2021-06-17] MEDS: QUEtiapine FUMARATE 25 MG TAB PO SCH ×2 (09:03→21:53)
[2021-06-17] MEDS: SODIUM CHLOR 0.9% PF (SALINE LOCK) 10ML VIAL/SYR IV SCH ×2 (09:03→21:53)
[2021-06-17] MEDS: Pro-Stat SF 30ml Vanilla GT SCH ×2 (09:03→21:52)
[2021-06-17 11:01] LABS: Hematocrit 25.6 % (41.0-53.0); Hemoglobin 8.5 g/dL (13.5-17.5)
[2021-06-17] MEDS: fentaNYL Drip 2500mCg/250mlNS 250 ML IV SCH (11:03)
[2021-06-17] MEDS: NOREPINEPHRINE 8 MG/250ML KIT 250 ML IV SCH (14:51)
[2021-06-17] MEDS: VASOPRESSIN 50 UNITS in D5W 5% 247.5 ML IV SCH (16:21)
[2021-06-17] MEDS: INSULIN LANTUS (GLARGINE) 1 /0.01ml (100units/ml) SC SCH (21:54)
[2021-06-18] VITALS (79 sets, daily range): BP systolic 78–182; BP diastolic 47–144
[2021-06-18] MEDS: INSULIN LANTUS (GLARGINE) 1 /0.01ml (100units/ml) SC SCH
[2021-06-18] MEDS: PIPERACILLIN-TAZOB 3.375GM 100 ML IV SCH ×4 (00:49→18:34)
[2021-06-18] MEDS: ACCU-CHEK COMFORT CURVE STRIP VI SCH ×4 (00:50→18:00)
[2021-06-18] MEDS: NOREPINEPHRINE 8 MG/250ML KIT 250 ML IV SCH (01:50)
[2021-06-18] MEDS: PROPOFOL 100 ML IV SCH ×3 (01:51→13:26)
[2021-06-18] MEDS: ACETYLCYSTEINE 10 %(100MG/ML) SOL 4ML NEB SCH ×6 (02:00→22:29)
[2021-06-18] MEDS: POTASSIUM CHL 20MEQ/50ML 50 ML IV SCH ×3 (05:00→23:48)
[2021-06-18] MEDS ORDERED: VANCOMYCIN 1GM/250ML 250 ML IV SCH ×2 (05:00→19:00)
[2021-06-18] MEDS: InsuLIN REG 1unit/0.01ml Soln (100units/ml) SC SCH ×4 (06:00→18:00)
[2021-06-18] MEDS: ALBUTEROL SULF 2.5 MG/0.5ML(0.5%) NEB SOLN NEB PRN ×5 (06:00→22:29)
[2021-06-18 06:05] LABS: Basophils # (auto) 0.1 10 ^3/uL (0-0.2); Basophils % (auto) 0.9 % (0.0-2.0); Eosinophils # (auto) 0.4 10 ^3/uL (0-0.8); Hematocrit 23.9 % (41.0-53.0); Hemoglobin 8.3 g/dL (13.5-17.5); Lymphocytes % (auto) 7.4 % (10.0-50.0); Mean Corpuscular Hemoglobin 29.9 pg (28.0-32.0); Mean Corpuscular Hgb Conc. 34.7 g/dL (32.0-36.0); Mean Corpuscular Volume 86.2 fL (80.0-100.0); Monocytes # (auto) 0.4 10 ^3/uL (0-1.3); Monocytes % (auto) 3.3 % (0.0-12.0); Neutrophils # (auto) 11.2 10 ^3/uL (1.6-8.6); Neutrophils % (auto) 85.4 % (37.0-80.0); Nucleated Red Blood Cells % 0.1 %; Red Blood Cells 2.77 10^6/uL (4.5-5.90); Red Cell Distribution Width 15.3 % (11.8-14.3); White Blood Cell 13.1 10^3/uL (4.4-10.8)
[2021-06-18] MEDS: fentaNYL Drip 2500mCg/250mlNS 250 ML IV SCH (06:21)
[2021-06-18 06:26] LABS: INR 1.22 (0.9-1.15)
[2021-06-18 06:28] LABS: Albumin 1.2 g/dL (3.4-5.0); Calcium 7.5 mg/dL (8.5-10.1)
[2021-06-18 06:31] LABS: Bilirubin, Total 0.5 mg/dL (0.2-1.0); Total Protein 4.4 g/dL (6.4-8.2)
[2021-06-18 06:52] LABS: Potassium 2.8 mmol/L (3.5-5.1)
[2021-06-18] MEDS: Pro-Stat SF 30ml Vanilla GT SCH ×2 (09:53→22:00)
[2021-06-18] MEDS: QUEtiapine FUMARATE 25 MG TAB PO SCH ×2 (10:35→21:34)
[2021-06-18] MEDS: SODIUM CHLOR 0.9% PF (SALINE LOCK) 10ML VIAL/SYR IV SCH ×2 (10:35→21:34)
[2021-06-18] MEDS: DexAMETHasone SOD PHOS 4 MG/1ML SDV INJ IV SCH (10:35)
[2021-06-18] MEDS ORDERED: POTASSIUM CHL 10MEQ/50ML 50 ML IV SCH ×3 (14:15→15:15)
[2021-06-18] MEDS ORDERED: TPN PER PHARMACY 0 ML IV SCH (15:15)
[2021-06-18] MEDS ORDERED: POTASSIUM CHL IV ONE (16:00)
[2021-06-18] MEDS ORDERED: STERILE WATER IV ONE (16:00)
[2021-06-18] MEDS ORDERED: POTASSIUM CHLORIDE IV ONE (16:00)
[2021-06-18] MEDS: VASOPRESSIN 50 UNITS in D5W 5% 247.5 ML IV SCH (16:51)
[2021-06-18] MEDS: PANTOPRAZOLE 40mg/50ML NS AE 50 ML IV SCH ×2 (16:52→23:42)
[2021-06-18 16:56] LABS: Basophils # (auto) 0.1 10 ^3/uL (0-0.2); Basophils % (auto) 0.5 % (0.0-2.0); Eosinophils # (auto) 0 10 ^3/uL (0-0.8); Eosinophils % (auto) 0.3 % (0.0-7.0); Hematocrit 23.7 % (41.0-53.0); Hemoglobin 8.2 g/dL (13.5-17.5); Lymphocytes # (auto) 0.3 10 ^3/uL (0.4-5.4); Lymphocytes % (auto) 2.5 % (10.0-50.0); Mean Corpuscular Hemoglobin 29.8 pg (28.0-32.0); Mean Corpuscular Hgb Conc. 34.4 g/dL (32.0-36.0); Mean Corpuscular Volume 86.5 fL (80.0-100.0); Monocytes # (auto) 0.1 10 ^3/uL (0-1.3); Neutrophils # (auto) 12.7 10 ^3/uL (1.6-8.6); Neutrophils % (auto) 95.7 % (37.0-80.0); Nucleated Red Blood Cells % 0.1 %; Red Blood Cells 2.74 10^6/uL (4.5-5.90); Red Cell Distribution Width 15.4 % (11.8-14.3); White Blood Cell 13.2 10^3/uL (4.4-10.8)
[2021-06-18] MEDS ORDERED: POTASSIUM CHLORIDE IV SCH (17:00)
[2021-06-18] MEDS ORDERED: STERILE WATER IV SCH (17:00)
[2021-06-18] MEDS: FUROSEMIDE 40 MG/4 ML VIAL IV SCH (18:12)
[2021-06-18] MEDS ORDERED: AMINO ACID INFUSION IN D10W 1,000 ML IV NR (20:00)
[2021-06-18] MEDS: VANCOMYCIN 1GM/250ML 250 ML IV SCH (21:15)
[2021-06-18] MEDS ORDERED: PANTOPRAZOLE 40 MG/10 ML VIAL INJ IV SCH (22:00)
[2021-06-19] VITALS (74 sets, daily range): BP systolic 88–137; BP diastolic 43–71
[2021-06-19] MEDS ORDERED: DEXTROSE (50%) 50ML SYRG IV SCH
[2021-06-19] MEDS: PANTOPRAZOLE 40mg/50ML NS AE 50 ML IV SCH ×5 (01:15→23:30)
[2021-06-19] MEDS: ACETYLCYSTEINE 10 %(100MG/ML) SOL 4ML NEB SCH ×6 (02:11→18:54)
[2021-06-19] MEDS: ALBUTEROL SULF 2.5 MG/0.5ML(0.5%) NEB SOLN NEB PRN ×6 (02:11→18:54)
[2021-06-19] MEDS: PIPERACILLIN-TAZOB 3.375GM 100 ML IV SCH ×5 (06:00→23:36)
[2021-06-19 06:32] LABS: Basophils # (auto) 0 10 ^3/uL (0-0.2); Hematocrit 20.8 % (41.0-53.0); Monocytes # (auto) 0.6 10 ^3/uL (0-1.3); Red Blood Cells 2.41 10^6/uL (4.5-5.90)
[2021-06-19 06:35] LABS: Basophils % (auto) 0.4 % (0.0-2.0); Eosinophils # (auto) 0.3 10 ^3/uL (0-0.8); Eosinophils % (auto) 2.1 % (0.0-7.0); Hemoglobin 7.3 g/dL (13.5-17.5); Lymphocytes # (auto) 0.8 10 ^3/uL (0.4-5.4); Lymphocytes % (auto) 6.4 % (10.0-50.0); Mean Corpuscular Hemoglobin 30.4 pg (28.0-32.0); Mean Corpuscular Hgb Conc. 35.3 g/dL (32.0-36.0); Monocytes % (auto) 4.6 % (0.0-12.0); Neutrophils % (auto) 86.5 % (37.0-80.0); Nucleated Red Blood Cells % 0.2 %; Red Cell Distribution Width 15.9 % (11.8-14.3); White Blood Cell 12.7 10^3/uL (4.4-10.8)
[2021-06-19 06:53] LABS: Albumin 1.2 g/dL (3.4-5.0); Calcium 7.1 mg/dL (8.5-10.1); Magnesium 2.4 mg/dL (1.6-2.6); Potassium 3.5 mmol/L (3.5-5.1)
[2021-06-19 06:59] LABS: BUN/Creatinine Ratio 46.4; Bilirubin, Total 0.4 mg/dL (0.2-1.0); Phosphorus 2.4 mg/dL (2.5-4.90); Pre Albumin 6.4 mg/dL (20.0-40.0); Total Protein 4.5 g/dL (6.4-8.2)
[2021-06-19] MEDS: PROPOFOL 100 ML IV SCH ×2 (08:28→18:12)
[2021-06-19] MEDS: fentaNYL Drip 2500mCg/250mlNS 250 ML IV SCH (08:30)
[2021-06-19] MEDS: NOREPINEPHRINE 8 MG/250ML KIT 250 ML IV SCH (08:31)
[2021-06-19] MEDS: QUEtiapine FUMARATE 25 MG TAB PO SCH ×2 (09:15→22:00)
[2021-06-19] MEDS ORDERED: POTASSIUM PHOSPHATE 22 MEQ in SODIUM CHL 0.9% 100 ML IV ONE (09:15)
[2021-06-19] MEDS: FUROSEMIDE 40 MG/4 ML VIAL IV SCH (09:15)
[2021-06-19] MEDS: SODIUM CHLOR 0.9% PF (SALINE LOCK) 10ML VIAL/SYR IV SCH ×2 (09:22→22:00)
[2021-06-19] MEDS: Pro-Stat SF 30ml Vanilla GT SCH ×2 (10:00→22:00)
[2021-06-19] MEDS: VANCOMYCIN 1GM/250ML 250 ML IV SCH (11:51)
[2021-06-19] MEDS: ACCU-CHEK COMFORT CURVE STRIP VI SCH ×4 (11:52→23:36)
[2021-06-19] MEDS: InsuLIN REG 1unit/0.01ml Soln (100units/ml) SC SCH ×3 (12:00→18:05)
[2021-06-19] MEDS: VASOPRESSIN 50 UNITS in D5W 5% 247.5 ML IV SCH (14:45)
[2021-06-19] MEDS ORDERED: TPN PER PHARMACY IV NR ×15 (20:00)
[2021-06-19] MEDS: INSULIN LANTUS (GLARGINE) 1 /0.01ml (100units/ml) SC SCH (22:00)
[2021-06-20] VITALS (100 sets, daily range): BP systolic 82–135; BP diastolic 44–78
[2021-06-20] MEDS: VANCOMYCIN 1GM/250ML 250 ML IV SCH ×2 (01:00→15:10)
[2021-06-20] MEDS: ACETYLCYSTEINE 10 %(100MG/ML) SOL 4ML NEB SCH ×6 (02:00→22:09)
[2021-06-20] MEDS: PANTOPRAZOLE 40mg/50ML NS AE 50 ML IV SCH ×5 (02:15→23:27)
[2021-06-20] MEDS: ALBUTEROL SULF 2.5 MG/0.5ML(0.5%) NEB SOLN NEB PRN ×6 (04:02→22:09)
[2021-06-20] MEDS: InsuLIN REG 1unit/0.01ml Soln (100units/ml) SC SCH ×4 (06:00→17:40)
[2021-06-20] MEDS: PIPERACILLIN-TAZOB 3.375GM 100 ML IV SCH ×4 (06:00→23:27)
[2021-06-20] MEDS: ACCU-CHEK COMFORT CURVE STRIP VI SCH ×3 (06:00→17:42)
[2021-06-20 06:10] LABS: Basophils # (auto) 0.1 10 ^3/uL (0-0.2); Eosinophils # (auto) 0.5 10 ^3/uL (0-0.8); Eosinophils % (auto) 5.8 % (0.0-7.0); Hematocrit 24.5 % (41.0-53.0); Hemoglobin 8.5 g/dL (13.5-17.5); Lymphocytes # (auto) 0.8 10 ^3/uL (0.4-5.4); Lymphocytes % (auto) 9.5 % (10.0-50.0); Mean Corpuscular Hemoglobin 29.6 pg (28.0-32.0); Mean Corpuscular Hgb Conc. 34.8 g/dL (32.0-36.0); Mean Corpuscular Volume 85.2 fL (80.0-100.0); Monocytes # (auto) 0.4 10 ^3/uL (0-1.3); Monocytes % (auto) 4.1 % (0.0-12.0); Neutrophils # (auto) 6.7 10 ^3/uL (1.6-8.6); Neutrophils % (auto) 79.6 % (37.0-80.0); Red Blood Cells 2.88 10^6/uL (4.5-5.90); Red Cell Distribution Width 16.1 % (11.8-14.3); White Blood Cell 8.5 10^3/uL (4.4-10.8)
[2021-06-20 06:37] LABS: Albumin 1.2 g/dL (3.4-5.0); BUN/Creatinine Ratio 57.9; Bilirubin, Total 0.5 mg/dL (0.2-1.0); Calcium 6.8 mg/dL (8.5-10.1); Magnesium 1.7 mg/dL (1.6-2.6); Total Protein 4.6 g/dL (6.4-8.2)
[2021-06-20 07:28] LABS: Urine Bacteria FEW /hpf (None Seen); Urine Blood 2+ /uL (Negative); Urine Specific Gravity 1.005 (1.001-1.035); Urine WBC 1 /hpf (0 - 3)
[2021-06-20] MEDS ORDERED: POTASSIUM PHOSPHATE 44 MEQ in D5W 5% 250 ML IV ONE (08:45)
[2021-06-20] MEDS ORDERED: fentaNYL CITRATE 100 MCG/2 ML VL ONE (08:47)
[2021-06-20] MEDS ORDERED: diphenhdrAMINE HCL 50 MG/1 ML VL ONE (08:47)
[2021-06-20] MEDS ORDERED: MIDAZOLAM HCL 5 MG/ML-1ML VIAL ONE (08:47)
[2021-06-20] MEDS: MAGNESIUM SULFATE 1GM/100ML 100 ML IV SCH ×2 (09:18→10:46)
[2021-06-20] MEDS: FUROSEMIDE 40 MG/4 ML VIAL IV SCH (09:19)
[2021-06-20] MEDS: Pro-Stat SF 30ml Vanilla GT SCH ×2 (09:19→21:26)
[2021-06-20] MEDS: SODIUM CHLOR 0.9% PF (SALINE LOCK) 10ML VIAL/SYR IV SCH ×2 (09:20→21:26)
[2021-06-20] MEDS ORDERED: SIMETHICONE 40 MG/0.6 ML ORAL DROP ONE (09:30)
[2021-06-20] MEDS: QUEtiapine FUMARATE 25 MG TAB PO SCH ×2 (10:00→21:26)
[2021-06-20] MEDS: PROPOFOL 100 ML IV SCH ×3 (11:20→19:32)
[2021-06-20] MEDS: VASOPRESSIN 50 UNITS in D5W 5% 247.5 ML IV SCH (14:45)
[2021-06-20] MEDS: fentaNYL Drip 2500mCg/250mlNS 250 ML IV SCH (19:31)
[2021-06-20] MEDS ORDERED: TPN PER PHARMACY IV NR ×8 (20:00)
[2021-06-20] MEDS: ARTIFICIAL TEARS 15ml EACHEYE PRN (20:20)
[2021-06-20] MEDS: INSULIN LANTUS (GLARGINE) 1 /0.01ml (100units/ml) SC SCH (21:31)
[2021-06-20] MEDS: NOREPINEPHRINE 8 MG/250ML KIT 250 ML IV SCH (21:51)
[2021-06-21] VITALS (104 sets, daily range): BP systolic 85–134; BP diastolic 55–75
[2021-06-21] MEDS: InsuLIN REG 1unit/0.01ml Soln (100units/ml) SC SCH ×4 (00:08→18:03)
[2021-06-21] MEDS: ACCU-CHEK COMFORT CURVE STRIP VI SCH ×4 (00:08→18:03)
[2021-06-21] MEDS: ACETYLCYSTEINE 10 %(100MG/ML) SOL 4ML NEB SCH ×4 (02:11→22:26)
[2021-06-21] MEDS: ALBUTEROL SULF 2.5 MG/0.5ML(0.5%) NEB SOLN NEB PRN ×4 (02:11→22:26)
[2021-06-21] MEDS: VANCOMYCIN 1GM/250ML 250 ML IV SCH ×2 (03:30→15:59)
[2021-06-21] MEDS: PANTOPRAZOLE 40mg/50ML NS AE 50 ML IV SCH ×5 (05:04→23:30)
[2021-06-21] MEDS: PROPOFOL 100 ML IV SCH ×4 (05:05→19:30)
[2021-06-21 06:05] LABS: Albumin 1.1 g/dL (3.4-5.0); Calcium 7.1 mg/dL (8.5-10.1); Magnesium 2.4 mg/dL (1.6-2.6)
[2021-06-21 06:09] LABS: BUN/Creatinine Ratio 28.6; Bilirubin, Total 0.4 mg/dL (0.2-1.0); Phosphorus 2.8 mg/dL (2.5-4.90); Total Protein 4.9 g/dL (6.4-8.2)
[2021-06-21 06:19] LABS: Potassium 2.7 mmol/L (3.5-5.1)
[2021-06-21] MEDS: PIPERACILLIN-TAZOB 3.375GM 100 ML IV SCH ×3 (06:28→18:03)
[2021-06-21] MEDS ORDERED: POTASSIUM CHL 20MEQ/100ML 100 ML IV ONE (07:45)
[2021-06-21] MEDS ORDERED: POTASSIUM EFFERVESENT TAB 25 MEQ GT ONE (07:45)
[2021-06-21] MEDS ORDERED: POTASSIUM EFFERVESENT TAB 25 MEQ PO ONE (09:15)
[2021-06-21] MEDS: POTASSIUM CHL 20MEQ/100ML 100 ML IV SCH ×2 (09:45→11:45)
[2021-06-21] MEDS: Pro-Stat SF 30ml Vanilla GT SCH ×2 (09:56→21:55)
[2021-06-21] MEDS: ENOXAPARIN SOD 30 MG/0.3 ML SYRINGE SC SCH (09:56)
[2021-06-21] MEDS: SODIUM CHLOR 0.9% PF (SALINE LOCK) 10ML VIAL/SYR IV SCH ×2 (09:56→21:55)
[2021-06-21] MEDS: QUEtiapine FUMARATE 25 MG TAB PO SCH ×2 (09:56→21:55)
[2021-06-21] MEDS: FUROSEMIDE 40 MG/4 ML VIAL IV SCH (10:17)
[2021-06-21] MEDS: NOREPINEPHRINE 8 MG/250ML KIT 250 ML IV SCH (13:05)
[2021-06-21] MEDS: fentaNYL Drip 2500mCg/250mlNS 250 ML IV SCH ×2 (13:05→23:30)
[2021-06-21] MEDS: VASOPRESSIN 50 UNITS in D5W 5% 247.5 ML IV SCH (14:45)
[2021-06-21] MEDS ORDERED: Glucerna 1.2 Cal 1Liter BOTTLE GT SCH (17:30)
[2021-06-21 18:46] LABS: BUN/Creatinine Ratio 41.4; Calcium 6.8 mg/dL (8.5-10.1); Potassium 3.4 mmol/L (3.5-5.1)
[2021-06-21] MEDS ORDERED: TPN PER PHARMACY IV NR ×9 (20:00)
[2021-06-21] MEDS: ARTIFICIAL TEAR OPTH(EYE) OINT 3.5GM EACHEYE SCH (21:54)
[2021-06-21] MEDS: INSULIN LANTUS (GLARGINE) 1 /0.01ml (100units/ml) SC SCH (22:16)
[2021-06-22] VITALS (106 sets, daily range): BP systolic 84–138; BP diastolic 49–69
[2021-06-22] MEDS: PIPERACILLIN-TAZOB 3.375GM 100 ML IV SCH ×4 (00:01→18:04)
[2021-06-22] MEDS: InsuLIN REG 1unit/0.01ml Soln (100units/ml) SC SCH ×4 (00:03→17:55)
[2021-06-22] MEDS: ACCU-CHEK COMFORT CURVE STRIP VI SCH ×4 (00:05→17:56)
[2021-06-22] MEDS: PROPOFOL 100 ML IV SCH ×3 (01:30→15:35)
[2021-06-22] MEDS: ACETYLCYSTEINE 10 %(100MG/ML) SOL 4ML NEB SCH ×4 (02:30→22:50)
[2021-06-22] MEDS: ALBUTEROL SULF 2.5 MG/0.5ML(0.5%) NEB SOLN NEB PRN ×4 (02:37→23:13)
[2021-06-22 05:22] LABS: Basophils # (auto) 0.1 10 ^3/uL (0-0.2); Basophils % (auto) 0.8 % (0.0-2.0); Eosinophils # (auto) 0.5 10 ^3/uL (0-0.8); Eosinophils % (auto) 4.9 % (0.0-7.0); Hematocrit 25.7 % (41.0-53.0); Hemoglobin 8.9 g/dL (13.5-17.5); Lymphocytes # (auto) 1.1 10 ^3/uL (0.4-5.4); Lymphocytes % (auto) 9.9 % (10.0-50.0); Mean Corpuscular Hemoglobin 29.5 pg (28.0-32.0); Mean Corpuscular Hgb Conc. 34.6 g/dL (32.0-36.0); Mean Corpuscular Volume 85.1 fL (80.0-100.0); Monocytes # (auto) 0.3 10 ^3/uL (0-1.3); Monocytes % (auto) 3.1 % (0.0-12.0); Neutrophils # (auto) 8.8 10 ^3/uL (1.6-8.6); Neutrophils % (auto) 81.3 % (37.0-80.0); Red Blood Cells 3.01 10^6/uL (4.5-5.90); White Blood Cell 10.8 10^3/uL (4.4-10.8)
[2021-06-22 05:47] LABS: Calcium 6.9 mg/dL (8.5-10.1); Magnesium 2.3 mg/dL (1.6-2.6)
[2021-06-22 05:51] LABS: BUN/Creatinine Ratio 62.5; Bilirubin, Total 0.4 mg/dL (0.2-1.0); Phosphorus 2.5 mg/dL (2.5-4.90); Total Protein 4.6 g/dL (6.4-8.2)
[2021-06-22] MEDS: PANTOPRAZOLE 40mg/50ML NS AE 50 ML IV SCH ×4 (06:00→21:19)
[2021-06-22] MEDS: VANCOMYCIN 1GM/250ML 250 ML IV SCH ×4 (06:00→18:05)
[2021-06-22 06:15] LABS: Potassium 2.8 mmol/L (3.5-5.1)
[2021-06-22] MEDS: POTASSIUM CHL 20MEQ/100ML 100 ML IV SCH ×2 (08:00→11:00)
[2021-06-22] MEDS: SODIUM CHLOR 0.9% PF (SALINE LOCK) 10ML VIAL/SYR IV SCH ×2 (09:41→21:02)
[2021-06-22] MEDS: QUEtiapine FUMARATE 25 MG TAB PO SCH ×2 (09:41→21:02)
[2021-06-22] MEDS: FUROSEMIDE 40 MG/4 ML VIAL IV SCH (09:41)
[2021-06-22] MEDS: ENOXAPARIN SOD 30 MG/0.3 ML SYRINGE SC SCH (09:42)
[2021-06-22] MEDS: Pro-Stat SF 30ml Vanilla GT SCH ×2 (09:47→21:02)
[2021-06-22] MEDS ORDERED: POTASSIUM PHOSPHATE 44 MEQ in D5W 5% 250 ML IV ONE (13:00)
[2021-06-22] MEDS ORDERED: SODIUM CHLORIDE 0.9 % NEB SOLN 3ML NEB ONE (13:20)
[2021-06-22] MEDS: fentaNYL Drip 2500mCg/250mlNS 250 ML IV SCH (14:31)
[2021-06-22] MEDS: VASOPRESSIN 50 UNITS in D5W 5% 247.5 ML IV SCH (14:45)
[2021-06-22] MEDS: NOREPINEPHRINE 8 MG/250ML KIT 250 ML IV SCH (15:34)
[2021-06-22] MEDS ORDERED: TPN PER PHARMACY IV NR ×8 (20:00)
[2021-06-22] MEDS: ARTIFICIAL TEAR OPTH(EYE) OINT 3.5GM EACHEYE SCH (21:01)
[2021-06-22] MEDS: INSULIN LANTUS (GLARGINE) 1 /0.01ml (100units/ml) SC SCH (21:21)
[2021-06-23] VITALS (100 sets, daily range): BP systolic 83–137; BP diastolic 49–68
[2021-06-23] MEDS: ACCU-CHEK COMFORT CURVE STRIP VI SCH ×5 (00:54→23:13)
[2021-06-23] MEDS: PIPERACILLIN-TAZOB 3.375GM 100 ML IV SCH ×5 (00:54→23:51)
[2021-06-23] MEDS: InsuLIN REG 1unit/0.01ml Soln (100units/ml) SC SCH ×5 (01:08→23:52)
[2021-06-23] MEDS: PROPOFOL 100 ML IV SCH ×4 (01:13→18:44)
[2021-06-23] MEDS: PANTOPRAZOLE 40mg/50ML NS AE 50 ML IV SCH ×3 (02:15→10:25)
[2021-06-23] MEDS: ALBUTEROL SULF 2.5 MG/0.5ML(0.5%) NEB SOLN NEB PRN ×5 (02:15→21:50)
[2021-06-23] MEDS: ACETYLCYSTEINE 10 %(100MG/ML) SOL 4ML NEB SCH ×5 (02:15→21:50)
[2021-06-23] MEDS: fentaNYL Drip 2500mCg/250mlNS 250 ML IV SCH ×2 (07:21→22:54)
[2021-06-23] MEDS: NOREPINEPHRINE 8 MG/250ML KIT 250 ML IV SCH ×2 (07:22→17:51)
[2021-06-23 07:36] LABS: Calcium 6.3 mg/dL (8.5-10.1); Magnesium 1.8 mg/dL (1.6-2.6); Potassium 3.1 mmol/L (3.5-5.1)
[2021-06-23 07:38] LABS: Basophils # (auto) 0.2 10 ^3/uL (0-0.2); Basophils % (auto) 1.7 % (0.0-2.0); Eosinophils # (auto) 0.5 10 ^3/uL (0-0.8); Eosinophils % (auto) 4.3 % (0.0-7.0); Hematocrit 26.9 % (41.0-53.0); Hemoglobin 9.2 g/dL (13.5-17.5); Lymphocytes # (auto) 1.5 10 ^3/uL (0.4-5.4); Lymphocytes % (auto) 11.8 % (10.0-50.0); Mean Corpuscular Hemoglobin 29.1 pg (28.0-32.0); Mean Corpuscular Hgb Conc. 34.2 g/dL (32.0-36.0); Monocytes # (auto) 0.4 10 ^3/uL (0-1.3); Monocytes % (auto) 3.1 % (0.0-12.0); Neutrophils # (auto) 9.9 10 ^3/uL (1.6-8.6); Neutrophils % (auto) 79.1 % (37.0-80.0); Nucleated Red Blood Cells % 0.1 %; Red Blood Cells 3.17 10^6/uL (4.5-5.90); Red Cell Distribution Width 15.7 % (11.8-14.3); White Blood Cell 12.6 10^3/uL (4.4-10.8)
[2021-06-23 07:39] LABS: Bilirubin, Total 0.3 mg/dL (0.2-1.0)
[2021-06-23 08:04] LABS: Albumin 0.9 g/dL (3.4-5.0)
[2021-06-23] MEDS ORDERED: D5W/SOD CHL 0.9%/KCL 40MEQ 1,000 ML IV SCH (08:15)
[2021-06-23] MEDS: POTASSIUM CHL 20MEQ/100ML 100 ML IV SCH ×4 (08:49→18:13)
[2021-06-23] MEDS: MAGNESIUM SULFATE 1GM/100ML 100 ML IV SCH ×2 (09:16→10:24)
[2021-06-23] MEDS: FUROSEMIDE 40 MG/4 ML VIAL IV SCH (10:09)
[2021-06-23] MEDS: Pro-Stat SF 30ml Vanilla GT SCH ×2 (10:09→21:34)
[2021-06-23] MEDS: METOCLOPRAMIDE HCL 5MG/ml INJ 2ml VIAL IV SCH ×4 (10:09→23:51)
[2021-06-23] MEDS: SODIUM CHLOR 0.9% PF (SALINE LOCK) 10ML VIAL/SYR IV SCH ×2 (10:10→21:35)
[2021-06-23] MEDS: QUEtiapine FUMARATE 25 MG TAB PO SCH ×2 (10:10→21:35)
[2021-06-23] MEDS: ENOXAPARIN SOD 30 MG/0.3 ML SYRINGE SC SCH (10:10)
[2021-06-23] MEDS: VASOPRESSIN 50 UNITS in D5W 5% 247.5 ML IV SCH (14:45)
[2021-06-23] MEDS: DEXTROSE (50%) 50ML SYRG IV PRN (17:41)
[2021-06-23] MEDS: VANCOMYCIN 1GM/250ML 250 ML IV SCH (20:08)
[2021-06-23] MEDS: ARTIFICIAL TEAR OPTH(EYE) OINT 3.5GM EACHEYE SCH (21:34)
[2021-06-23] MEDS: PANTOPRAZOLE 40 MG/10 ML VIAL INJ IV SCH (21:35)
[2021-06-23] MEDS: INSULIN LANTUS (GLARGINE) 1 /0.01ml (100units/ml) SC SCH (22:00)
[2021-06-24] VITALS (88 sets, daily range): BP systolic 80–137; BP diastolic 42–70
[2021-06-24] MEDS: ALBUTEROL SULF 2.5 MG/0.5ML(0.5%) NEB SOLN NEB PRN ×6 (01:52→22:11)
[2021-06-24] MEDS: ACETYLCYSTEINE 10 %(100MG/ML) SOL 4ML NEB SCH ×6 (01:52→22:11)
[2021-06-24] MEDS: NOREPINEPHRINE 8 MG/250ML KIT 250 ML IV SCH ×2 (03:03→11:28)
[2021-06-24] MEDS: METOCLOPRAMIDE HCL 5MG/ml INJ 2ml VIAL IV SCH ×4 (05:40→23:33)
[2021-06-24] MEDS: PIPERACILLIN-TAZOB 3.375GM 100 ML IV SCH ×4 (05:40→23:33)
[2021-06-24] MEDS: ACCU-CHEK COMFORT CURVE STRIP VI SCH ×4 (05:41→23:33)
[2021-06-24] MEDS: InsuLIN REG 1unit/0.01ml Soln (100units/ml) SC SCH ×4 (05:41→23:33)
[2021-06-24 06:34] LABS: Mean Corpuscular Hemoglobin 28.4 pg (28.0-32.0); Mean Corpuscular Hgb Conc. 33.2 g/dL (32.0-36.0); Mean Corpuscular Volume 85.5 fL (80.0-100.0); Red Blood Cells 3.16 10^6/uL (4.5-5.90); Red Cell Distribution Width 16.2 % (11.8-14.3); White Blood Cell 22.3 10^3/uL (4.4-10.8)
[2021-06-24 06:40] LABS: Basophils % (manual) 0 (0.0-2.0); Blast Cells 0; Myelocytes % 0; Promyelocytes % 0; Reactive Lymphocytes 0
[2021-06-24 07:38] LABS: BUN/Creatinine Ratio 57.6; Calcium 7.2 mg/dL (8.5-10.1); Magnesium 1.5 mg/dL (1.6-2.6); Potassium 3.9 mmol/L (3.5-5.1)
[2021-06-24 07:42] LABS: Band Neutrophils % (manual) 20; Bilirubin, Total 0.2 mg/dL (0.2-1.0); Eosinophils % (manual) 3 (0-7); Lymphocytes % (manual) 6 (10.0-50.0); Metamyelocytes % 1; Monocytes % (manual) 2 (0-12); Total Protein 4.9 g/dL (6.4-8.2)
[2021-06-24 08:14] LABS: Albumin 0.9 g/dL (3.4-5.0)
[2021-06-24] MEDS: FUROSEMIDE 40 MG/4 ML VIAL IV SCH (11:20)
[2021-06-24] MEDS: PANTOPRAZOLE 40 MG/10 ML VIAL INJ IV SCH ×2 (11:21→21:49)
[2021-06-24] MEDS: QUEtiapine FUMARATE 25 MG TAB PO SCH ×2 (11:21→21:49)
[2021-06-24] MEDS: SODIUM CHLOR 0.9% PF (SALINE LOCK) 10ML VIAL/SYR IV SCH ×2 (11:21→21:49)
[2021-06-24] MEDS: ENOXAPARIN SOD 30 MG/0.3 ML SYRINGE SC SCH (11:22)
[2021-06-24] MEDS: Pro-Stat SF 30ml Vanilla GT SCH ×2 (11:23→21:48)
[2021-06-24] MEDS: VANCOMYCIN 1GM/250ML 250 ML IV SCH ×2 (11:24→21:49)
[2021-06-24] MEDS: PROPOFOL 100 ML IV SCH ×3 (11:29→19:28)
[2021-06-24] MEDS: fentaNYL Drip 2500mCg/250mlNS 250 ML IV SCH (11:37)
[2021-06-24] MEDS: VASOPRESSIN 50 UNITS in D5W 5% 247.5 ML IV SCH (14:45)
[2021-06-24] MEDS: ARTIFICIAL TEAR OPTH(EYE) OINT 3.5GM EACHEYE SCH (21:48)
[2021-06-24] MEDS: INSULIN LANTUS (GLARGINE) 1 /0.01ml (100units/ml) SC SCH (21:50)
[2021-06-24] MEDS ORDERED: PHENYLEPHRINE IV 250 ML IV ONE (23:40)
[2021-06-25] VITALS (103 sets, daily range): BP systolic 78–156; BP diastolic 42–107
[2021-06-25] MEDS: PHENYLEPHRINE IV 250 ML IV SCH ×4 (00:30→23:37)
[2021-06-25] MEDS: VASOPRESSIN 50 UNITS in D5W 5% 247.5 ML IV SCH ×2 (01:11→23:37)
[2021-06-25] MEDS: fentaNYL Drip 2500mCg/250mlNS 250 ML IV SCH ×2 (01:28→13:08)
[2021-06-25] MEDS: NOREPINEPHRINE 8 MG/250ML KIT 250 ML IV SCH ×3 (01:29→22:52)
[2021-06-25] MEDS: PROPOFOL 100 ML IV SCH ×5 (01:30→22:53)
[2021-06-25] MEDS: ACETYLCYSTEINE 10 %(100MG/ML) SOL 4ML NEB SCH ×6 (02:27→23:22)
[2021-06-25] MEDS: ALBUTEROL SULF 2.5 MG/0.5ML(0.5%) NEB SOLN NEB PRN ×6 (02:27→23:22)
[2021-06-25 05:01] LABS: Eosinophils # (auto) 0.8 10 ^3/uL (0-0.8); Monocytes # (auto) 0.9 10 ^3/uL (0-1.3); Nucleated Red Blood Cells % 0.1 %
[2021-06-25 05:03] LABS: Basophils # (auto) 0.2 10 ^3/uL (0-0.2); Basophils % (auto) 0.8 % (0.0-2.0); Eosinophils % (auto) 3.8 % (0.0-7.0); Hematocrit 25.6 % (41.0-53.0); Hemoglobin 8.5 g/dL (13.5-17.5); Lymphocytes # (auto) 1.5 10 ^3/uL (0.4-5.4); Lymphocytes % (auto) 7.6 % (10.0-50.0); Mean Corpuscular Hemoglobin 28.4 pg (28.0-32.0); Mean Corpuscular Hgb Conc. 33.1 g/dL (32.0-36.0); Mean Corpuscular Volume 85.8 fL (80.0-100.0); Monocytes % (auto) 4.7 % (0.0-12.0); Neutrophils # (auto) 16.8 10 ^3/uL (1.6-8.6); Neutrophils % (auto) 83.1 % (37.0-80.0); Red Blood Cells 2.98 10^6/uL (4.5-5.90); White Blood Cell 20.2 10^3/uL (4.4-10.8)
[2021-06-25 05:20] LABS: BUN/Creatinine Ratio 57.5; Calcium 7.2 mg/dL (8.5-10.1); Magnesium 2.3 mg/dL (1.6-2.6); Potassium 3.3 mmol/L (3.5-5.1)
[2021-06-25 05:23] LABS: Bilirubin, Total 0.3 mg/dL (0.2-1.0); Total Protein 4.6 g/dL (6.4-8.2)
[2021-06-25 05:29] LABS: Albumin 0.8 g/dL (3.4-5.0)
[2021-06-25] MEDS: PIPERACILLIN-TAZOB 3.375GM 100 ML IV SCH ×4 (05:37→23:36)
[2021-06-25] MEDS: METOCLOPRAMIDE HCL 5MG/ml INJ 2ml VIAL IV SCH ×4 (05:37→23:36)
[2021-06-25] MEDS: ACCU-CHEK COMFORT CURVE STRIP VI SCH ×4 (05:38→23:37)
[2021-06-25] MEDS: InsuLIN REG 1unit/0.01ml Soln (100units/ml) SC SCH ×4 (05:46→23:37)
[2021-06-25] MEDS: Pro-Stat SF 30ml Vanilla GT SCH ×2 (12:59→21:41)
[2021-06-25] MEDS: FUROSEMIDE 40 MG/4 ML VIAL IV SCH (13:00)
[2021-06-25] MEDS: PANTOPRAZOLE 40 MG/10 ML VIAL INJ IV SCH ×2 (13:01→21:41)
[2021-06-25] MEDS: SODIUM CHLOR 0.9% PF (SALINE LOCK) 10ML VIAL/SYR IV SCH ×2 (13:01→21:41)
[2021-06-25] MEDS: QUEtiapine FUMARATE 25 MG TAB PO SCH ×2 (13:02→21:41)
[2021-06-25] MEDS: ENOXAPARIN SOD 30 MG/0.3 ML SYRINGE SC SCH (13:02)
[2021-06-25] MEDS: VANCOMYCIN 1GM/250ML 250 ML IV SCH ×2 (13:03→23:35)
[2021-06-25] MEDS ORDERED: ALBUMIN 25% 100 ML IV ONE (14:30)
[2021-06-25] MEDS ORDERED: SODIUM CHLORIDE 0.9% 500 ML IV ONE (14:30)
[2021-06-25] MEDS: ARTIFICIAL TEAR OPTH(EYE) OINT 3.5GM EACHEYE SCH (21:41)
[2021-06-25] MEDS: INSULIN LANTUS (GLARGINE) 1 /0.01ml (100units/ml) SC SCH (21:48)
[2021-06-26] VITALS (99 sets, daily range): BP systolic 69–181; BP diastolic 39–104
[2021-06-26] MEDS: fentaNYL Drip 2500mCg/250mlNS 250 ML IV SCH ×2 (01:04→14:01)
[2021-06-26] MEDS: ALBUTEROL SULF 2.5 MG/0.5ML(0.5%) NEB SOLN NEB PRN ×5 (02:34→22:10)
[2021-06-26] MEDS: ACETYLCYSTEINE 10 %(100MG/ML) SOL 4ML NEB SCH ×6 (02:34→22:10)
[2021-06-26 05:19] LABS: Red Blood Cells 2.77 10^6/uL (4.5-5.90)
[2021-06-26 05:20] LABS: Hematocrit 23.5 % (41.0-53.0); Mean Corpuscular Hemoglobin 28.7 pg (28.0-32.0); Mean Corpuscular Hgb Conc. 33.8 g/dL (32.0-36.0); Mean Corpuscular Volume 84.9 fL (80.0-100.0); Red Cell Distribution Width 15.7 % (11.8-14.3); White Blood Cell 15.7 10^3/uL (4.4-10.8)
[2021-06-26 05:23] LABS: Basophils % (manual) 0 (0.0-2.0); Blast Cells 0; Metamyelocytes % 0; Myelocytes % 0; Promyelocytes % 0; Reactive Lymphocytes 0
[2021-06-26 05:39] LABS: Albumin 1.1 g/dL (3.4-5.0); Calcium 7.3 mg/dL (8.5-10.1)
[2021-06-26 05:41] LABS: Bilirubin, Total 0.3 mg/dL (0.2-1.0); Total Protein 4.8 g/dL (6.4-8.2)
[2021-06-26 05:43] LABS: Potassium 2.9 mmol/L (3.5-5.1)
[2021-06-26] MEDS ORDERED: POTASSIUM CHL 20MEQ/100ML 200 ML IV ONE (05:59)
[2021-06-26] MEDS: InsuLIN REG 1unit/0.01ml Soln (100units/ml) SC SCH ×4 (06:00→23:31)
[2021-06-26] MEDS: ACCU-CHEK COMFORT CURVE STRIP VI SCH ×4 (06:07→23:30)
[2021-06-26] MEDS: METOCLOPRAMIDE HCL 5MG/ml INJ 2ml VIAL IV SCH ×4 (06:07→23:29)
[2021-06-26] MEDS: PIPERACILLIN-TAZOB 3.375GM 100 ML IV SCH ×4 (06:07→23:30)
[2021-06-26 06:31] LABS: Band Neutrophils % (manual) 26; Eosinophils % (manual) 5 (0-7); Lymphocytes % (manual) 7 (10.0-50.0); Monocytes % (manual) 3 (0-12)
[2021-06-26] MEDS: PROPOFOL 100 ML IV SCH ×2 (06:50→16:39)
[2021-06-26] MEDS: NOREPINEPHRINE 8 MG/250ML KIT 250 ML IV SCH (06:51)
[2021-06-26] MEDS ORDERED: POTASSIUM CHL 20MEQ/100ML 100 ML IV ONE (07:15)
[2021-06-26 08:56] LABS: Phosphorus 4.4 mg/dL (2.5-4.90)
[2021-06-26] MEDS: PHENYLEPHRINE IV 250 ML IV SCH ×2 (09:41→18:10)
[2021-06-26] MEDS: FUROSEMIDE 40 MG/4 ML VIAL IV SCH (10:25)
[2021-06-26] MEDS: Pro-Stat SF 30ml Vanilla GT SCH ×2 (10:25→22:33)
[2021-06-26] MEDS: SODIUM CHLOR 0.9% PF (SALINE LOCK) 10ML VIAL/SYR IV SCH ×2 (10:26→22:34)
[2021-06-26] MEDS: QUEtiapine FUMARATE 25 MG TAB PO SCH ×2 (10:28→22:35)
[2021-06-26] MEDS: ENOXAPARIN SOD 30 MG/0.3 ML SYRINGE SC SCH (10:28)
[2021-06-26] MEDS: PANTOPRAZOLE 40 MG/10 ML VIAL INJ IV SCH ×2 (10:29→22:34)
[2021-06-26] MEDS: NOREPINEPHRINE BITARTRATE 32 MG in SODIUM CHL 0.9% 218 ML IV SCH (14:20)
[2021-06-26] MEDS: INSULIN LANTUS (GLARGINE) 1 /0.01ml (100units/ml) SC SCH (22:00)
[2021-06-26] MEDS: ARTIFICIAL TEAR OPTH(EYE) OINT 3.5GM EACHEYE SCH (22:33)
[2021-06-26] MEDS: VASOPRESSIN 50 UNITS in D5W 5% 247.5 ML IV SCH (23:31)
[2021-06-27] VITALS (98 sets, daily range): BP systolic 39–196; BP diastolic 35–122
[2021-06-27] MEDS ORDERED: ALBUMIN 5% 250 ML IV ONE (00:45)
[2021-06-27] MEDS: ALBUTEROL SULF 2.5 MG/0.5ML(0.5%) NEB SOLN NEB PRN ×5 (02:20→18:43)
[2021-06-27] MEDS: ACETYLCYSTEINE 10 %(100MG/ML) SOL 4ML NEB SCH ×5 (02:20→18:43)
[2021-06-27] MEDS: PHENYLEPHRINE IV 250 ML IV SCH ×4 (02:30→18:30)
[2021-06-27] MEDS: PROPOFOL 100 ML IV SCH (04:00)
[2021-06-27] MEDS: NOREPINEPHRINE BITARTRATE 32 MG in SODIUM CHL 0.9% 218 ML IV SCH (04:42)
[2021-06-27] MEDS: VASOPRESSIN 50 UNITS in D5W 5% 247.5 ML IV SCH (04:43)
[2021-06-27] MEDS: METOCLOPRAMIDE HCL 5MG/ml INJ 2ml VIAL IV SCH ×4 (05:33→23:41)
[2021-06-27] MEDS: PIPERACILLIN-TAZOB 3.375GM 100 ML IV SCH ×4 (05:33→23:41)
[2021-06-27] MEDS: InsuLIN REG 1unit/0.01ml Soln (100units/ml) SC SCH ×4 (05:34→23:42)
[2021-06-27] MEDS: ACCU-CHEK COMFORT CURVE STRIP VI SCH ×4 (05:37→23:42)
[2021-06-27 05:39] LABS: Hematocrit 26.2 % (41.0-53.0); Hemoglobin 8.6 g/dL (13.5-17.5); Mean Corpuscular Hemoglobin 27.9 pg (28.0-32.0); Mean Corpuscular Volume 84.4 fL (80.0-100.0); Red Cell Distribution Width 15.9 % (11.8-14.3); White Blood Cell 17.7 10^3/uL (4.4-10.8)
[2021-06-27 05:54] LABS: Basophils % (manual) 0 (0.0-2.0); Blast Cells 0; Metamyelocytes % 0; Myelocytes % 0; Reactive Lymphocytes 0
[2021-06-27 06:04] LABS: Potassium 3.2 mmol/L (3.5-5.1)
[2021-06-27 06:15] LABS: BUN/Creatinine Ratio 42.2; Bilirubin, Total 0.3 mg/dL (0.2-1.0); Calcium 7.4 mg/dL (8.5-10.1); Total Protein 5.1 g/dL (6.4-8.2)
[2021-06-27 08:43] LABS: Band Neutrophils % (manual) 6; Eosinophils % (manual) 5 (0-7); Lymphocytes % (manual) 5 (10.0-50.0); Monocytes % (manual) 6 (0-12); Promyelocytes % 1
[2021-06-27] MEDS: FUROSEMIDE 40 MG/4 ML VIAL IV SCH (10:07)
[2021-06-27] MEDS: Pro-Stat SF 30ml Vanilla GT SCH ×2 (10:07→21:42)
[2021-06-27] MEDS: SODIUM CHLOR 0.9% PF (SALINE LOCK) 10ML VIAL/SYR IV SCH ×2 (10:08→21:42)
[2021-06-27] MEDS: PANTOPRAZOLE 40 MG/10 ML VIAL INJ IV SCH ×2 (10:08→21:42)
[2021-06-27] MEDS: QUEtiapine FUMARATE 25 MG TAB PO SCH ×2 (10:10→21:42)
[2021-06-27] MEDS: ENOXAPARIN SOD 30 MG/0.3 ML SYRINGE SC SCH (10:12)
[2021-06-27] MEDS ORDERED: POTASSIUM CHL 20MEQ/100ML 100 ML IV ONE (11:30)
[2021-06-27] MEDS: fentaNYL Drip 2500mCg/250mlNS 250 ML IV SCH (16:15)
[2021-06-27] MEDS: DOPamine 1600MCG/ML D5W 250 ML IV PRN (18:31)
[2021-06-27] MEDS: PHENYLEPHRINE INJ 80 MG in SODIUM CHL 0.9% 242 ML IV SCH (21:41)
[2021-06-27] MEDS: ARTIFICIAL TEAR OPTH(EYE) OINT 3.5GM EACHEYE SCH (21:42)
[2021-06-27] MEDS: INSULIN LANTUS (GLARGINE) 1 /0.01ml (100units/ml) SC SCH (21:42)
[2021-06-28] VITALS (89 sets, daily range): BP systolic 49–192; BP diastolic 28–151
[2021-06-28] MEDS: NOREPINEPHRINE BITARTRATE 32 MG in SODIUM CHL 0.9% 218 ML IV SCH ×2 (00:12→22:07)
[2021-06-28] MEDS: VASOPRESSIN 50 UNITS in D5W 5% 247.5 ML IV SCH ×2 (00:13→22:06)
[2021-06-28] MEDS: PROPOFOL 100 ML IV SCH ×2 (00:13→06:51)
[2021-06-28] MEDS: ACETYLCYSTEINE 10 %(100MG/ML) SOL 4ML NEB SCH ×7 (02:33→22:33)
[2021-06-28] MEDS: ALBUTEROL SULF 2.5 MG/0.5ML(0.5%) NEB SOLN NEB PRN ×6 (02:33→22:43)
[2021-06-28] MEDS: METOCLOPRAMIDE HCL 5MG/ml INJ 2ml VIAL IV SCH ×3 (05:35→17:23)
[2021-06-28] MEDS: PIPERACILLIN-TAZOB 3.375GM 100 ML IV SCH ×3 (05:36→17:42)
[2021-06-28] MEDS: InsuLIN REG 1unit/0.01ml Soln (100units/ml) SC SCH ×3 (05:40→18:00)
[2021-06-28] MEDS: ACCU-CHEK COMFORT CURVE STRIP VI SCH ×3 (05:40→18:00)
[2021-06-28 05:45] LABS: Hemoglobin 10.1 g/dL (13.5-17.5)
[2021-06-28 05:48] LABS: Hematocrit 30.6 % (41.0-53.0); Mean Corpuscular Volume 84.8 fL (80.0-100.0); Red Blood Cells 3.61 10^6/uL (4.5-5.90); Red Cell Distribution Width 16.4 % (11.8-14.3)
[2021-06-28 05:56] LABS: White Blood Cell 30.8 10^3/uL (4.4-10.8)
[2021-06-28 05:58] LABS: Basophils % (manual) 0 (0.0-2.0); Blast Cells 0; Eosinophils % (manual) 0 (0-7); Promyelocytes % 0; Reactive Lymphocytes 0
[2021-06-28] MEDS: PHENYLEPHRINE INJ 80 MG in SODIUM CHL 0.9% 242 ML IV SCH ×2 (06:48→22:07)
[2021-06-28 07:37] LABS: Band Neutrophils % (manual) 51; Lymphocytes % (manual) 6 (10.0-50.0); Metamyelocytes % 6; Monocytes % (manual) 5 (0-12); Myelocytes % 1
[2021-06-28 07:54] LABS: BUN/Creatinine Ratio 30.4; Calcium 7.2 mg/dL (8.5-10.1); Potassium 4.1 mmol/L (3.5-5.1)
[2021-06-28] MEDS: FUROSEMIDE 40 MG/4 ML VIAL IV SCH (09:31)
[2021-06-28] MEDS: Pro-Stat SF 30ml Vanilla GT SCH ×2 (09:31→21:37)
[2021-06-28] MEDS: PANTOPRAZOLE 40 MG/10 ML VIAL INJ IV SCH ×2 (09:32→21:37)
[2021-06-28] MEDS: QUEtiapine FUMARATE 25 MG TAB PO SCH ×2 (09:32→21:37)
[2021-06-28] MEDS: ENOXAPARIN SOD 30 MG/0.3 ML SYRINGE SC SCH (09:32)
[2021-06-28] MEDS: SODIUM CHLOR 0.9% PF (SALINE LOCK) 10ML VIAL/SYR IV SCH ×2 (09:32→21:37)
[2021-06-28] MEDS: fentaNYL Drip 2500mCg/250mlNS 250 ML IV SCH (16:15)
[2021-06-28] MEDS: ARTIFICIAL TEAR OPTH(EYE) OINT 3.5GM EACHEYE SCH (21:37)
[2021-06-28] MEDS: INSULIN LANTUS (GLARGINE) 1 /0.01ml (100units/ml) SC SCH (21:37)
[2021-06-28] MEDS: DOPamine 1600MCG/ML D5W 250 ML IV PRN (22:08)
[2021-06-28] MEDS: DEXTROSE (50%) 50ML SYRG IV PRN (23:09)
[2021-06-29] VITALS (36 sets, daily range): BP systolic 0–108; BP diastolic 0–63
[2021-06-29] MEDS: METOCLOPRAMIDE HCL 5MG/ml INJ 2ml VIAL IV SCH ×2 (01:37→05:49)
[2021-06-29] MEDS: DOPamine 1600MCG/ML D5W 250 ML IV PRN ×3 (01:39→09:08)
[2021-06-29] MEDS: DEXTROSE (50%) 50ML SYRG IV PRN ×2 (01:46→05:50)
[2021-06-29] MEDS: ACETYLCYSTEINE 10 %(100MG/ML) SOL 4ML NEB SCH ×2 (02:15→06:26)
[2021-06-29] MEDS: ALBUTEROL SULF 2.5 MG/0.5ML(0.5%) NEB SOLN NEB PRN ×2 (02:31→06:25)
[2021-06-29] MEDS: PHENYLEPHRINE INJ 80 MG in SODIUM CHL 0.9% 242 ML IV SCH (04:25)
[2021-06-29] MEDS: PIPERACILLIN-TAZOB 3.375GM 100 ML IV SCH ×2 (05:49)
[2021-06-29] MEDS: ACCU-CHEK COMFORT CURVE STRIP VI SCH ×2 (05:49)
[2021-06-29] MEDS: InsuLIN REG 1unit/0.01ml Soln (100units/ml) SC SCH ×2 (05:49)
[2021-06-29 06:03] LABS: Calcium 6.2 mg/dL (8.5-10.1)
[2021-06-29 06:29] LABS: Bilirubin, Total 1.6 mg/dL (0.2-1.0); Total Protein 3.6 g/dL (6.4-8.2)
[2021-06-29 06:44] LABS: Albumin 0.6 g/dL (3.4-5.0); Potassium 5.8 mmol/L (3.5-5.1)
[2021-06-29] MEDS: VASOPRESSIN 50 UNITS in D5W 5% 247.5 ML IV SCH (09:08)
[2021-06-29] MEDS: SODIUM CHLOR 0.9% PF (SALINE LOCK) 10ML VIAL/SYR IV SCH (09:37)
[2021-06-29] MEDS: PANTOPRAZOLE 40 MG/10 ML VIAL INJ IV SCH (09:42)
[2021-06-29] MEDS: ENOXAPARIN SOD 30 MG/0.3 ML SYRINGE SC SCH (09:42)
[2021-06-29] MEDS: QUEtiapine FUMARATE 25 MG TAB PO SCH (09:42)
[2021-06-29] MEDS: Pro-Stat SF 30ml Vanilla GT SCH (09:47)
[2021-06-29] MEDS: FUROSEMIDE 40 MG/4 ML VIAL IV SCH (09:47)
== END 2021-06-29 12:00 | DRG 870 ==
LOC: ER 20:58 → EEVIPCON 20:58 → OVERFLOW 05-04 01:24 → WEST WING 05-04 04:00 → ICU WEST 05-09 12:00 → DOU IN ICU 05-10 22:41 → ICU CENTRL 06-21 08:42 → DOU IN ICU 06-21 09:41 → ICU CENTRL 06-25 23:30 → DOU IN ICU 06-26 17:08 → ICU CENTRL 06-26 17:34
PROVIDERS: ADMIT Internal Medicine; ATTEND Internal Medicine
PROC: XW033E5 Introduction of Remdesivir Anti-infective into Peripheral Vein, Percutaneous Approach, New Technology Group 5 (ICD-10-PCS; 2021-05-05)
PROC: 0BH17EZ Insertion of Endotracheal Airway into Trachea, Via Natural or Artificial Opening (ICD-10-PCS; principal; 2021-05-09)
PROC: 5A1955Z Respiratory Ventilation, Greater than 96 Consecutive Hours (ICD-10-PCS; 2021-05-09)
PROC: 06HY33Z Insertion of Infusion Device into Lower Vein, Percutaneous Approach (ICD-10-PCS; 2021-05-09)
PROC: 009U3ZX Drainage of Spinal Canal, Percutaneous Approach, Diagnostic (ICD-10-PCS; 2021-05-10)
PROC: 0B9G7ZX Drainage of Left Upper Lung Lobe, Via Natural or Artificial Opening, Diagnostic (ICD-10-PCS; 2021-06-09)
PROC: 03HY32Z Insertion of Monitoring Device into Upper Artery, Percutaneous Approach (ICD-10-PCS; 2021-06-09)
PROC: 4A133B1 Monitoring of Arterial Pressure, Peripheral, Percutaneous Approach (ICD-10-PCS; 2021-06-09)
PROC: 4A133J1 Monitoring of Arterial Pulse, Peripheral, Percutaneous Approach (ICD-10-PCS; 2021-06-09)
PROC: 30233N1 Transfusion of Nonautologous Red Blood Cells into Peripheral Vein, Percutaneous Approach (ICD-10-PCS; 2021-06-17)
PROC: 0DH63UZ Insertion of Feeding Device into Stomach, Percutaneous Approach (ICD-10-PCS; 2021-06-20)
DX: A41.89 Other specified sepsis (principal); U07.1 COVID-19; J12.82 Pneumonia due to coronavirus disease 2019; J96.01 Acute respiratory failure with hypoxia; I63.81 Other cerebral infarction due to occlusion or stenosis of small artery; K26.4 Chronic or unspecified duodenal ulcer with hemorrhage; J98.11 Atelectasis; E87.0 Hyperosmolality and hypernatremia; E87.1 Hypo-osmolality and hyponatremia; E46 Unspecified protein-calorie malnutrition; Z66 Do not resuscitate; E11.65 Type 2 diabetes mellitus with hyperglycemia; E87.6 Hypokalemia; E88.09 Other disorders of plasma-protein metabolism, not elsewhere classified; D64.9 Anemia, unspecified; Z51.5 Encounter for palliative care; I10 Essential (primary) hypertension; Z68.21 Body mass index [BMI] 21.0-21.9, adult
CPT/HCPCS: 31624; 36415; 36569; 36600; 43246; 70450; 71045; 71250; 71275; 72125; 80048; 80053; 80202; 80307; 80320; 81001; 82040; 82140; 82565; 82728; 82805; 82945; 82962; 83605; 83735; 84100; 84132; 84157; 84478; 84484; 85007; 85014; 85018; 85025; 85027; 85379; 85610; 85730; 86141; 86703; 86850; 86900; 86901; 86920; 87040; 87070; 87077; 87081; 87086; 87186; 87205; 87493; 87529; 89051; 93005; 94002; 94003; 94640; 94660; 96365; 96375; C9113; G0378; J0171; J0330; J0461; J0696; J1100; J1815; J2250; J2543; J2704; J3480; J7060; J7131; P9047